=== PATIENT | female | born 2000 | race African-American/Black ===

== ENCOUNTER 2020-04-05 16:10 | Emergency (ER) | payer OTHER, SELFPAY ==
[2020-04-05 16:27] VITALS: BP 120/73; PULSE 83; RESP 16; TEMP 37.4; O2SAT 100
--- NOTE | 2020-04-05 16:31 | ED.EYEPROB ---
HPI - Eye Problem General Chief complaint: Eye Problems Stated complaint: eye problems Time Seen by Provider: 04/05/20 16:31 Source: patient Mode of arrival: ambulatory Limitations: no limitations History of Present Illness HPI Narrative: Clari Casas is a 20 yo female with no PMH who comes to express care with a large stye in her left eye. She states started on yesterday but it was very small but when she woke up the spreading her whole eyelid is very swollen. States the pain is 6 out of 10 Related Data Allergies Allergy/AdvReac Type Severity Reaction Status Date / Time No Known Allergies Allergy Verified 04/05/20 16:15 Review of Systems Review of Systems: Narrative: CONSTITUTIONAL: Denies fever, chills, sweats. EYES: Denies visual changes, has swelling of left upper eyelid with redness, discharge. ENT: Denies rhinorrhea, congestion, sore throat, otalgia. CARDIOVASCULAR: Denies chest pain, palpitations, edema. RESPIRATORY: Denies dyspnea, wheezing, cough GASTROINTESTINAL: Denies abdominal pain, nausea, vomiting, diarrhea. GENITOURINARY: Denies dysuria, hematuria, abnormal discharge SKIN: Denies rash or itching. NEUROLOGIC: Denies numbness, or focal weakness. PSYCHIATRIC: Denies anxiety or depression. FORMERLY [facility], [facility] Family History Family History Other No active medical problems Social History Social History Smoking status: Never smoker Alcohol intake: current Comments At time of signature, I agree with nursing past medical, surgical, social and family history. There is no relevant family history pertinent to the presenting complaint. Exam Narrative: Exam Narrative: GENERAL: This is a well-nourished, well-developed patient, in mild distress. HEAD: normocephalic, atraumatic. EYES: Vision is grossly intact. Left eye upper eyelid swollen and red, sclera clear EARS: External ears normal, auditory canals clear and without drainage, TMs normal without perforation. Hearing grossly intact. NOSE: External nose normal without nasal discharge, nares without redness, no rhinorrhea. THROAT: Mucous membranes moist, NECK: Neck supple, CARDIOVASCULAR: Regular rate and rhythm without murmurs, gallops, or rubs. RESPIRATORY: Clear to auscultation. Breath sounds equal bilaterally. No wheezes, rales, or rhonchi. GASTROINTESTINAL: Abdomen soft, non-tender, SKIN: warm, intact with no suspicious lesions or rash, good texture and turgor. NEURO: awake, alert, and oriented to person, place and time. There were no obvious focal neurologic abnormalities. Steady gait EXTREMITIES: Normal range of motion. BACK: Nontender without deformity Course Course Emergency Course: Started on Medrol Dosepak and antibiotic ointment for eyelid, discussed draining of stye and use of warm compresses and gentle massaging of eyelid Vital Signs Vital signs: Vital Signs Temperature 99.3 F 04/05/20 16:27 Pulse Rate 83 04/05/20 16:27 Respiratory Rate 16 04/05/20 16:27 Blood Pressure 120/73 04/05/20 16:27 Pulse Oximetry 100 04/05/20 16:27 Temperature 99.3 F 04/05/20 16:27 Pulse Rate 83 04/05/20 16:27 Respiratory Rate 16 04/05/20 16:27 Blood Pressure 120/73 04/05/20 16:27 Pulse Oximetry 100 04/05/20 16:27 MDM - Eye Problem Differential Diagnosis Differential diagnosis: Likely conjunctivitis and other (Blepharitis versus stye) Discharge Plan Discharge Clinical Impression: Hordeolum externum left upper eyelid Patient Disposition: Home, Self-Care Condition: Stable Instructions: Antibiotic Jessica Eduardo (ED) Additional Instructions: Use warm compresses to left eye, gently massage the eyelid, antibiotics ointment to left eyelid Prescriptions: New hhyrzmip-esmvxynapu-jagvqxdnc 3.5-400-10,000 hi-xqoi-ohuh/g ointment 1 applic EACH EYE TID Qty: 3.5 RF: 0 methylprednisolone [Medrol (Alexandro)] 4
== END 2020-04-05 16:56 | disposition home or self-care (01) ==
PROVIDERS: Emergency Provider Nurse Practitioner
DX: H00.014 Hordeolum externum left upper eyelid (principal)
CPT/HCPCS: 99203; G0463

== ENCOUNTER 2021-01-20 19:29 | Observation (INO) | payer OTHER, SELFPAY ==
--- NOTE | ~2021-01-20 | US_ITS ---
EXAMINATION: US OB <= 14 weeks fetus DATE: 01/21/2021 08:32 INDICATION: First trimester dating TECHNIQUE: Real-time pelvic transabdominal and transvaginal ultrasound was performed. COMPARISON: None. FINDINGS: The uterus measures 8.7 x 6.9 x 4.6 cm. There is an intrauterine gestational sac. A yolk s ac is identified. heart motion is identified measuring 157 beats per minute (bpm) by M-mode Dop pler. The crown rump length measures 1.4 cm , which correlates with an estimated gestational ag e of 7 weeks and 5 day(s) (+/-) 5 day(s). The right ovary measures 2.3 x 1.4 x 1.1 cm. The left ovary measures 2.4 x 2.2 x 1.8 cm. There is nor mal vascular flow in the ovaries. There is no free fluid in the pelvis. IMPRESSION: 1. Live intrauterine with an estimated gestational age of 7 weeks and 5 day(s) (+/-) 5 day( s) and an estimated delivery date of 09/04/2021. Reviewed, dictated and finalized at location A. IMPRESSION: 1. Live intrauterine with an estimated gestational age of 7 weeks and 5 day(s) (+/-) 5 day(s) and an estimated delivery date of 09/04/2021.
[2021-01-20 19:33] VITALS: BP 127/83; PULSE 71; RESP 18; TEMP 36.4; O2SAT 100
[2021-01-20 19:53] LABS: Basophils Percent Auto 0.2 % (0.2-1.2); Eosinophils Percent Auto 0.6 % (0-4.4); Hematocrit 41.7 % (37.0-47.0); Immature Granulocyte Absolute 0.02 K/mm3 (0.00-0.031); Immature Granulocyte Percent A 0.4 % (0-0.5); Lymphocytes Absolute Auto 1.61 K/mm3 (0.9-3.2); Lymphocytes Percent Auto 30.8 % (18.3-44.2); Mean Corpuscular HGB Conc 33.6 g/dl (32-36); Mean Corpuscular Hemoglobin 29.7 pg (26-34); Mean Corpuscular Volume 88.5 fl (80-100); Monocytes Absolute Auto 0.6 K/mm3 (0.1-0.6); Monocytes Percent Auto 10.5 % (2.6-8.5); Neutrophils Percent Auto 57.5 % (45.5-73.1); Platelet Count Result 265 k/mm3 (150-375); Red Blood Count 4.71 M/mm3 (4.2-5.4); White Blood Count 5.2 K/mm3 (4.5-10.0)
[2021-01-20 20:02] LABS: Alanine Aminotransferase 17 U/L (4-35); Albumin Level 4.8 g/dL (3.5-5.1); Alkaline Phosphatase 70 U/L (38-126); Anion Gap 11 mmol/L (8-16); Aspartate Amino Transferase 31 U/L (14-36); Bilirubin,Total 0.5 mg/dL (0.2-1.3); Blood Urea Nitrogen 11 mg/dL (7-17); Carbon Dioxide 25 mmol/L (22-30); Chloride 102 mmol/L (98-107); Estimated CRCL calculation 113 ml/min; Estimated Glomerular Filt Rate > 60; Glucose 95 mg/dL (65-105); Lipase 68 U/L (23-300); Potassium 3.3 mmol/L (3.4-5.0); Sodium 138 mmol/L (137-145)
--- NOTE | 2021-01-20 20:14 | ED.NAVMDI ---
HPI - Nausea/Vomiting/Diarrhea General Chief complaint: Nausea/Vomiting/Diarrhea Stated complaint: -N/V- 7 WEEKS Time Seen by Provider: 01/20/21 20:07 Source: RN notes reviewed History of Present Illness HPI Narrative: Patient presents to emergency department from home for nausea vomiting. Patient is G2, P1 approximately 7 weeks states that she has been having nausea vomiting for the past 1 week. She is followed by Dr. Christiansen today and was as prescribed diclegisd and Reglan which she has been taking with minimal relief. Patient denies having any fevers or chills, abdominal pain, vaginal bleeding diarrhea or any other symptoms she states she had problems with nausea vomiting with her first Related Data Allergies Allergy/AdvReac Type Severity Reaction Status Date / Time No Known Allergies Allergy Verified 01/20/21 20:16 Review of Systems Review of Systems: Narrative: Gen.: Denies fevers or chills ENT: Denies congestion Respiratory: Denies shortness of breath or cough CV: Denies chest pain or palpitations GI: Denies abdominal pain or diarrhea. Reports nausea and vomiting denies burning, urgency, frequency or hematuria Musculoskeletal: Denies back pain or muscle pain Neuro: Denies numbness, tingling, weakness or focal weakness Skin: Denies rash Except as documented, all other systems reviewed and negative [facility] Past Medical History Medical History (Updated 01/20/21 @ 22:25 by Gustavo Blanchard DO) No active medical problems Family History Family History Other No active medical problems Social History Social History Smoking status: Never smoker Alcohol intake: current Exam Narrative: Exam Narrative: APPEARANCE: No acute distress, nontoxic, resting in bed EYES: EOMI HEENT: Normocephalic, atraumatic, RESPIRATORY: No respiratory distress Clear to auscultation bilaterally with no rhonchi wheezing or rales. CARDIOVASCULAR: Regular rate and rhythm without murmurs rubs or gallops. ABDOMINAL: Soft, nontender, nondistended, no rebound or guarding MUSCULOSKELETAl: Moves all extremities. No clubbing, cyanosis or edema. NEURO: Awake and alert. Following commands, speech normal, no focal deficits SKIN:: Warm, dry. No rashes lesions or abrasions PSYCHIATRIC: Normal affect/mood, Course Course Emergency Course: Patient continues to have nausea unable to tolerate p.o. challenge following Phenergan and Zofran Discussed with Dr. Christiansen presentation work-up agrees with admission at this time to his service agrees with plan for a.m. ultrasound patient has no abdominal pain Discussed with patient and family results of workup and diagnosis. Discussed need for admission. Patient and family understand and agree to current treatment plan Vital Signs Vital signs: Vital Signs Temperature 97.5 F L 01/20/21 19:33 Pulse Rate 71 01/20/21 19:33 Respiratory Rate 18 01/20/21 19:33 Blood Pressure 127/83 01/20/21 19:33 Pulse Oximetry 100 01/20/21 19:33 Temperature 97.5 F L 01/20/21 19:33 Pulse Rate 71 01/20/21 22:23 Respiratory Rate 18 01/20/21 22:23 Blood Pressure 135/81 01/20/21 22:23 Pulse Oximetry 100 01/20/21 22:23 MDM - Nausea/Vomiting/Diarrhea Lab Data Result diagrams: 01/20/21 19:44 01/20/21 19:44 Labs: Lab Results 01/20/21 01/20/21 01/20/21 Range/Units 19:44 19:44 19:44 WBC 5.2 (4.5-10.0) K/mm3 RBC 4.71 (4.2-5.4) M/mm3 Hgb 14.0 (12.0-15.0) g/dL Hct 41.7 (37.0-47.0) % MCV 88.5 (80-100) fl MCH 29.7 (26-34) pg MCHC 33.6 (32-36) g/dl RDW 12.0 (11.5-14.5) % Plt Count 265 (150-375) k/mm3 MPV 11.0 H (7.4-10.4) fl Immature Gran % (Auto) 0.4 (0-0.5) % Neut % (Auto) 57.5 (45.5-73.1) % Lymph % (Auto) 30.8 (18.3-44.2) % [place] % (Auto) 10.5 H (2.6-8.5) %
[2021-01-20 20:31] LABS: Add Urine Microscopic? YES; Appearance Urine Cloudy (Clear); Bilirubin Urine Negative (Negative); Blood Urine Negative (Negative); Color Urine Amber (Yellow); Glucose Urine UA Negative (Negative); Ketones Urine 1+ mg/dL (Negative); Leukocyte Esterase Ur 1+ LEU/UL (Negative); Mucus Urine Heavy /lpf; Nitrate Urine Negative (Negative); Protein Urine 2+ mg/dL (Negative); RBC Urine 0-2 /hpf (0-2); Squamous Epithelial Cell Urine Many /hpf (Few)
[2021-01-20 20:33] LABS: Specific Grav Ur 1.036 (1.001-1.035)
[2021-01-20] MEDS: PROMETHAZINE HCL 25 MG/ML AMPUL 12.5 MG IV PUSH (20:36)
[2021-01-20] MEDS: FAMOTIDINE 20 MG/2 ML VIAL IV PUSH (20:37)
[2021-01-20] MEDS: SODIUM CHLORIDE 0.9% IV 1,000 ML 999 ML IV CONT ×2 (20:37→20:44)
[2021-01-20 21:04] VITALS: BP 108/66; PULSE 74
[2021-01-20 21:06] VITALS: BP 121/72; PULSE 75
[2021-01-20 21:09] VITALS: BP 133/76; PULSE 73
[2021-01-20] MEDS: ONDANSETRON INJ 4 MG/2 ML VIAL IV PUSH (21:42)
[2021-01-20 22:23] VITALS: BP 135/81; PULSE 71; RESP 18; O2SAT 100
--- NOTE | 2021-01-20 22:39 | OBADM ---
This patient, Clari Casas, admitted to the OB room OB Post 113 for observation. Patient/family oriented to hospital policies and general routines including ID bracelet, bed and alarms, visiting hours, pain management, procedures, bathroom and other care routines, personal items, smoking policy, room service/diet, and visiting hours. Patient/Family are encouraged to report perceived risks to care and to ask questions if they do not understand what they are told or what they should do.
[2021-01-20 22:47] VITALS: BP 132/76; PULSE 69; PULSE 70; RESP 16; TEMP 36.8; O2SAT 99
[2021-01-20 22:59] VITALS: BMI 27.3
[2021-01-20] MEDS: DEXTROSE 5%/0.45% SOD CHL 1,000 ML 125 ML IV CONT (23:09)
--- NOTE | 2021-01-20 23:51 | PC.NURSE ---
pt asking for crackers. RN explained to pt that she has a clear liquid order currently. Pt denies broth and willing to trying a popsicle.
[2021-01-21 04:51] VITALS: BP 119/69; PULSE 67; PULSE 71; RESP 16; TEMP 36.7; O2SAT 100
[2021-01-21] MEDS: DEXTROSE 5%/0.45% SOD CHL 1,000 ML 125 ML IV CONT ×2 (07:29→16:26)
[2021-01-21] MEDS: ONDANSETRON INJ 4 MG/2 ML VIAL IV PUSH ×3 (07:55→20:36)
--- NOTE | 2021-01-21 07:56 | PM.IMHP ---
H&P: HPI History of Present Illness Date/Time: 01/21/21 07:56 21yo @ 7w6d by LMP presented to ED with intractable nausea and vomiting. She states she has not really had anything to eat for about 1 week. Was taking anti-nausea medication at home but it was not working. She was given IV fluids and anti-emetics in the ED but symptoms were minimally improved. Was admitted overnight for observation and continued medical management. Chief Complaint: nausea and vomiting Review of Systems Constitutional: Constitutional: Reports no additional constitutional complaints Cardiovascular: Cardiovascular: Reports no additional cardiovascular complaints Respiratory: Respiratory: Reports no additional respiratory complaints Gastrointestinal: Gastrointestinal: Denies abdominal pain, Reports heartburn, Reports nausea and Reports vomiting Genitourinary: Genitourinary: Reports no additional female genitourinary complaints Musculoskeletal: Musculoskeletal: Reports no additional musculoskeletal complaints Integumentary/Breasts: Skin/Breast: Reports system reviewed and no additional complaints, except as docu Neurologic: Reports system reviewed and no additional complaints, except as documented Psychiatric: Psychiatric: Reports no additional psychiatric complaints Endocrine: Endocrine: Reports no additional endocrine complaints Hematologic/Lymphatic: Hematologic/Lymphatic: Reports no additional hematologic/lymphatic complaints [facility] Past Medical History Medical History No active medical problems Family History Family History Other No active medical problems Social History Social History Smoking status: Never smoker Alcohol intake: current Meds Home Medications and Allergies Home Medications Medication Instructions Recorded Confirmed Type metoclopramide HCl 1 mg PO PRN 01/20/21 01/20/21 History Allergies Allergy/AdvReac Type Severity Reaction Status Date / Time No Known Allergies Allergy Verified 01/20/21 20:16 Vital Signs Vital Signs - 24 hr 01/20/21 19:33 01/20/21 21:04 01/20/21 21:06 Temperature 36.4 C L Pulse Rate 71 74 75 Respiratory Rate 18 Blood Pressure 127/83 108/66 121/72 Pulse Oximetry 100 01/20/21 21:09 01/20/21 22:23 01/20/21 22:47 Temperature 36.8 C Pulse Rate 73 71 70 Respiratory Rate 18 16 Blood Pressure 133/76 135/81 132/76 Pulse Oximetry 100 99 01/21/21 04:51 Temperature 36.7 C Pulse Rate 71 Respiratory Rate 16 Blood Pressure 119/69 Pulse Oximetry 100 Exam Const: General: cooperative, healthy appearing, comfortable, well developed, alert and awake; No no acute distress Resp: Effort & Inspection: normal respiratory effort, able to speak in complete sentences, normal respiratory pattern, audible wheezes, no cough, respiratory effort not decreased and not labored Cardio: Rate: regular rate GI: Inspection: normal to inspection GI Palp: No abdominal tenderness, Yes Soft to palpation, No Firmness to palpation present (GI), No Tenderness to palpation present (GI), No Guarding due to palpation present (GI) and No Rigid due to palpation Neuro: General: oriented to person, oriented to place and oriented to time Psych: Appearance: grossly normal Mental Status: mental status grossly normal Speech and movement: Normal speech and movement present Affect: normal affect Attitude: cooperative Thought process: Normal thought process present Thought content: Yes Normal thought content present Insight: Good insight present (Psych) Judgement: Good judgement present (Psych) H&P: Results Labs Labs: Short CBC 01/20/21 01/20/21 01/20/21 Range/Units 19:44 19:44 19:44 WBC 5.2 (4.5-10.0) K/mm3 RBC 4.71 (4.2-5.4) M/mm3 Hgb 14.0 (12.0-15.0) g/dL Hct 41.7 (37.0-47.0) % MCV 88.5 (80-1
[2021-01-21] MEDS: FAMOTIDINE 20 MG/2 ML VIAL IV PUSH ×2 (08:10→21:29)
[2021-01-21 10:54] VITALS: BP 125/73; PULSE 69; TEMP 36.6
--- NOTE | 2021-01-21 20:30 | PC.NURSE ---
pt ate a few items off dinner tray and became nauseated afterwards. nausea has continued and is still present. see mar for medication interventions. pt has not had any vomiting this evening since change of shift at 1800.
[2021-01-22] MEDS: DEXTROSE 5%/0.45% SOD CHL 1,000 ML 125 ML IV CONT (00:32)
--- NOTE | 2021-01-22 02:30 | PC.NURSE ---
pt sleeping. pt states nausea is subsided at this time
[2021-01-22] MEDS: ONDANSETRON INJ 4 MG/2 ML VIAL IV PUSH ×2 (02:45→08:44)
[2021-01-22] MEDS: FAMOTIDINE 20 MG/2 ML VIAL IV PUSH (08:44)
--- NOTE | 2021-01-22 09:44 | PC.NURSE ---
0940--Reported pt status to Dr. Christiansen. Plan of care discussed and DC orders given.
[2021-01-22 10:11] VITALS: BP 125/66; PULSE 79
--- NOTE | 2021-01-22 10:51 | PC.NURSE ---
0930--Pt reports no nausea or vomiting after eating toast. Will continue to monitor. Discharge plan discussed,
--- NOTE | 2021-01-22 12:11 | PC.NURSE ---
1210--Removed IV from R AC. WNL.
--- NOTE | 2021-01-24 18:49 | PM.DS ---
DS: Admitting Diagnosis Admitting Diagnosis Admitting Diagnosis: Nausea and vomiting of DS: Discharge Diagnosis Discharge Diagnosis (1) Hyperemesis gravidarum: Code(s): O21.0 - Mild hyperemesis gravidarum Status: Acute DS: Summary Hospital Course Hospital Course: Patient was admitted for intractable nausea and vomiting. Patient received IV fluids and IV antiemetics. Over the course of her stay, she started to improve. Was able to tolerate fluids and popsicles. And eventually food. Stable for discharge home and outpatient management. Status at Discharge Functional status at discharge: independent ambulation Overall status at discharge: patient is progressing back to baseline Time Spent with Patient Time attestation: Total time spent providing and/or coordinating discharge services: Time spent: Less than 30 minutes Exam Const: General: cooperative, healthy appearing, comfortable, well developed, alert and awake; No no acute distress Orientation/consciousness: oriented to person, oriented to place and oriented to time Resp: Effort & Inspection: normal respiratory effort, able to speak in complete sentences, normal respiratory pattern, audible wheezes, no cough, respiratory effort not decreased and not labored Cardio: Rate: regular rate GI: Inspection: normal to inspection Neuro: General: oriented to person, oriented to place and oriented to time Psych: Appearance: grossly normal Mental Status: mental status grossly normal Speech and movement: Normal speech and movement present Affect: normal affect Attitude: cooperative Thought process: Normal thought process present Insight: Good insight present (Psych) Judgement: Good judgement present (Psych) Discharge Plan Discharge Attending physician on discharge: Pawel Christiansen Discharging Clinician: Pawel Christiansen Patient Disposition: Home, Self-Care Activity: as tolerated Diet: as tolerated Discharge Instructions: OB ANTEPARTUM DISCHARGE INSTRUCTIONS This information is given to help you properly care for yourself at home after your discharge from the hospital. Follow these instructions until your doctor tells you otherwise. DIET: Small Frequent Feedings [place] Advance As Tolerated Additional Diet Instructions: ACTIVITY: As Tolerated Additional Activity Instructions: RETURN TO LABOR AND DELIVERY IF YOU HAVE: Vaginal Bleeding Additional Reasons to Return to Labor and Delivery: Contractions may feel like abdominal pain, tightening, cramping, pressure, back ache, or thigh ache. . OTHER INSTRUCTIONS: FOLLOW-UP CARE: Keep Next Scheduled Appointment To see in/on Valuables released to patient or family? N/A Medications from home returned to patient? N/A I Acknowledge Receipt of and Understand the Above Instructions IF YOU HAVE ANY QUESTIONS REGARDING THESE INSTRUCTIONS, PLEASE CALL [phone]. IF PROBLEMS ARISE, CALL YOUR PROVIDER. IF EMERGENCY CARE IS NEEDED, [facility]S EMERG[facility]Y ROOM IS AVAILABLE 24 HOURS A DAY. Patient Instructions: Antibiotic Form Stand Alone Forms: General Discharge Information Follow-up/Referrals: Pawel Christiansen, [Physician] - Discharge Medications: New ondansetron 4 mg tablet,disintegrating 4 mg translingual Q6H PRN (Reason: nausea and vomiting) Qty: 30 RF: 1 Discontinued metoclopramide HCl 10 mg tablet 1 mg PO PRN RF: 0 Date of admission: 01/20/21 22:09 Primary Care Provider: PHYSICIAN,CONTINUOUS LOFT OPERATOR Admitting Provider: Pawel Christiansen Attending physician on admission: Pawel Christiansen Condition: Stable
== END 2021-01-22 12:13 | disposition home or self-care (01) ==
LOC: ANHED 22:07 → ANHOBPP 22:23
PROVIDERS: Family Medicine; Admitting Provider Obstetrics & Gynecology; Emergency Provider Emergency Medicine; Visit Provider Obstetrics & Gynecology
DX: O21.0 Mild hyperemesis gravidarum (principal); Z3A.01 Less than 8 weeks gestation of pregnancy
CPT/HCPCS: 36415; 76801; 80053; 81001; 81025; 83690; 84702; 85025; 87077; 87086; 87088; 96361; 96365; 96374; 96375; 96376; 99285; G0378; G0379; J0131; J2405; J2550; J7030

== ENCOUNTER 2021-01-25 08:52 | Observation (INO) | payer OTHER, SELFPAY ==
[2021-01-25 08:59] VITALS: BP 134/81; PULSE 73; RESP 14; TEMP 36.4; O2SAT 100
[2021-01-25 09:22] LABS: Basophils Percent Auto 0.2 % (0.2-1.2); Eosinophils Percent Auto 0.2 % (0-4.4); Hematocrit 41.9 % (37.0-47.0); Hemoglobin 14.2 g/dL (12.0-15.0); Immature Granulocyte Absolute 0.02 K/mm3 (0.00-0.031); Immature Granulocyte Percent A 0.5 % (0-0.5); Lymphocytes Absolute Auto 1.18 K/mm3 (0.9-3.2); Lymphocytes Percent Auto 27.2 % (18.3-44.2); Mean Corpuscular HGB Conc 33.9 g/dl (32-36); Mean Corpuscular Hemoglobin 29.2 pg (26-34); Mean Corpuscular Volume 86.2 fl (80-100); Mean Platelet Volume 11.4 fl (7.4-10.4); Monocytes Absolute Auto 0.4 K/mm3 (0.1-0.6); Monocytes Percent Auto 8.3 % (2.6-8.5); Neutrophils Absolute Auto 2.8 K/mm3 (1.3-6.7); Neutrophils Percent Auto 63.6 % (45.5-73.1); Platelet Count Result 253 k/mm3 (150-375); Red Blood Count 4.86 M/mm3 (4.2-5.4); Red Cell Distribution Width 12.1 % (11.5-14.5); White Blood Count 4.3 K/mm3 (4.5-10.0)
[2021-01-25 09:30] LABS: Add Urine Microscopic? YES; Appearance Urine Cloudy (Clear); Bacteria Urine Trace /hpf; Bilirubin Urine Negative (Negative); Blood Urine Negative (Negative); Color Urine Yellow (Yellow); Glucose Urine UA Negative (Negative); Ketones Urine 2+ mg/dL (Negative); Leukocyte Esterase Ur 1+ LEU/UL (Negative); Mucus Urine Few /lpf; Nitrate Urine Negative (Negative); Protein Urine 2+ mg/dL (Negative); RBC Urine 0-2 /hpf (0-2); Squamous Epithelial Cell Urine Many /hpf (Few)
[2021-01-25 09:31] LABS: Alanine Aminotransferase 15 U/L (4-35); Albumin Level 4.9 g/dL (3.5-5.1); Alkaline Phosphatase 73 U/L (38-126); Anion Gap 16 mmol/L (8-16); Aspartate Amino Transferase 27 U/L (14-36); Bilirubin,Total 0.5 mg/dL (0.2-1.3); Blood Urea Nitrogen 9 mg/dL (7-17); Calcium 10.3 mg/dL (8.4-10.2); Carbon Dioxide 21 mmol/L (22-30); Chloride 102 mmol/L (98-107); Estimated CRCL calculation 120 ml/min; Estimated Glomerular Filt Rate > 60; Glucose 87 mg/dL (65-105); Lipase 120 U/L (23-300); Potassium 3.1 mmol/L (3.4-5.0); Sodium 139 mmol/L (137-145)
[2021-01-25] MEDS: LACTATED RINGERS 1,000 ML 150 ML IV CONT (10:14)
[2021-01-25] MEDS: POTASSIUM CHLORIDE 20 MEQ TABLET 40 MEQ PO (10:35)
[2021-01-25] MEDS: PROMETHAZINE HCL 25 MG SUPP.RECT RECTAL (11:07)
[2021-01-25 11:20] VITALS: BP 114/69; PULSE 71; RESP 16; O2SAT 100
--- NOTE | 2021-01-25 12:44 | ED.NAVMDI ---
HPI - Nausea/Vomiting/Diarrhea General Chief complaint: Nausea/Vomiting/Diarrhea Stated complaint: Vomiting/8 weeks Time Seen by Provider: 01/25/21 09:32 Source: patient Mode of arrival: ambulatory Limitations: no limitations History of Present Illness HPI Narrative: 21-year-old female Presents because of nausea and vomiting She was discharged 3 days ago after a 2-day hospitalization for the same thing She is 8-1/2 weeks and has been attempting Zofran for hyperemesis at home but reports it only worked for about a day after discharge She had severe nausea and vomiting with her other 2 pregnancies as well Related Data Allergies Allergy/AdvReac Type Severity Reaction Status Date / Time metoclopramide [From Reglan] AdvReac Vomiting Verified 01/25/21 10:18 [facility] Past Medical History Medical History No active medical problems Family History Family History Other No active medical problems Social History Social History Smoking status: Never smoker Alcohol intake: current Course Vital Signs Vital signs: Vital Signs Temperature 36.4 C L 01/25/21 08:59 Pulse Rate 73 01/25/21 08:59 Respiratory Rate 14 01/25/21 08:59 Blood Pressure 134/81 01/25/21 08:59 Pulse Oximetry 100 01/25/21 08:59 Temperature 36.4 C L 01/25/21 08:59 Pulse Rate 71 01/25/21 11:20 Respiratory Rate 16 01/25/21 11:20 Blood Pressure 114/69 01/25/21 11:20 Pulse Oximetry 100 01/25/21 11:20 MDM - Nausea/Vomiting/Diarrhea Lab Data Result diagrams: 01/25/21 09:12 01/25/21 09:12 Labs: Lab Results 01/25/21 01/25/21 01/25/21 Range/Units 09:12 09:12 09:19 WBC 4.3 L (4.5-10.0) K/mm3 RBC 4.86 (4.2-5.4) M/mm3 Hgb 14.2 (12.0-15.0) g/dL Hct 41.9 (37.0-47.0) % MCV 86.2 (80-100) fl MCH 29.2 (26-34) pg MCHC 33.9 (32-36) g/dl RDW 12.1 (11.5-14.5) % Plt Count 253 (150-375) k/mm3 MPV 11.4 H (7.4-10.4) fl Immature Gran % (Auto) 0.5 (0-0.5) % Neut % (Auto) 63.6 (45.5-73.1) % Lymph % (Auto) 27.2 (18.3-44.2) % [place] % (Auto) 8.3 (2.6-8.5) % Eos % (Auto) 0.2 (0-4.4) % Baso % (Auto) 0.2 (0.2-1.2) % Lymph # (Auto) 1.18 (0.9-3.2) K/mm3 [place] # (Auto) 0.4 (0.1-0.6) K/mm3 Eos # (Auto) 0.0 (0-0.3) K/mm3 Baso # (Auto) 0.0 (0.0-0.1) K/mm3 Abs Immat Gran (auto) 0.02 (0.00-0.031) K/mm3 Absolute Neuts (auto) 2.8 (1.3-6.7) K/mm3 Absolute Nucleated RBC 0.0 (0.0-0.012) K/mm3 Nucleated RBC % 0.0 (0.0-0.2) % Sodium 139 (137-145) mmol/L Potassium 3.1 L (3.4-5.0) mmol/L Chloride 102 (98-107) mmol/L Carbon Dioxide 21 L (22-30) mmol/L Anion Gap 16 (8-16) mmol/L BUN 9 (7-17) mg/dL Creatinine 0.70 (0.7-1.0) mg/dL Estim Creat Clear Calc 120 ml/min Estimated GFR > 60 (59 - ) Glucose 87 (65-105) mg/dL Calcium 10.3 H (8.4-10.2) mg/dL Total Bilirubin 0.5 (0.2-1.3) mg/dL AST 27 (14-36) U/L ALT 15 (4-35) U/L Alkaline Phosphatase 73 (38-126) U/L Total Protein 10.0 H (6.3-8.2) g/dL Albumin 4.9 (3.5-5.1) g/dL Lipase 120 (23-300) U/L Urine Color Yellow (Yellow) Urine Appearance Cloudy H (Clear) Urine pH 6.0 (5.0-9.0) Ur Specific [place] 1.030 (1.001-1.035) Urine Protein 2+ H (Negative) mg/dL Urine Glucose (UA) Negative (Negative) mg/dL Urine Ketones 2+ H (Negative) mg/dL Ur Blood (Man) Negative (Negative) Urine Nitrate Negative (Negative) Urine Bilirubin Negative (Negative) Urine Urobilinogen 2.0 H (<2.0) mg/dL Leukocyte Esterase Rfl 1+ H (Negative) HILDA/UL Urine RBC 0-2 (0-2) /hpf Urine WBC 10-15 H /hpf Ur Squamous Epith Cells Many H (Few) /hpf Urine Bacteria Trac
--- NOTE | 2021-01-25 14:07 | PM.IMHP ---
H&P: HPI History of Present Illness Date/Time: 01/25/21 13:38 Clari is a 21yo @ 8.3wks (SUNITHA 09[birth year]) who re-presented to the ER w/ severe N/V, inability to keep anything down (even water) for the last 48 hours. She was discharged 3 days ago after a 2-day hospitalization for the same thing. She has been attempting Zofran for hyperemesis at home but reports it only worked for about a day after discharge and then made her vomit. She had severe nausea and vomiting with her other 2 pregnancies as well. Her potassium was found to be low at 3.1 with 2+ ketones on UA. Urine culture from her last admission is growing GBS. Chief Complaint: nausea/vomiting Review of Systems Constitutional: Constitutional: Denies chills and Denies headache(s) Eyes: Eyes: Denies change in vision Cardiovascular: Cardiovascular: Denies chest pain and Denies rapid heart rate Respiratory: Respiratory: Denies cough and Denies dyspnea Gastrointestinal: Gastrointestinal: Denies abdominal pain, Reports heartburn, Reports nausea, Reports vomiting and Denies hematemesis Comments: passing gas; last BM 01/23/21 Genitourinary: Genitourinary: Denies abnormal vaginal bleeding [facility] Past Medical History Medical History No active medical problems Family History Family History Other No active medical problems Social History Social History Smoking status: Never smoker Alcohol intake: current Meds Home Medications and Allergies Home Medications Medication Instructions Recorded Confirmed Type ondansetron 4 mg TRANSLINGUAL Q6H PRN #30 01/22/21 Rx tablet Allergies Allergy/AdvReac Type Severity Reaction Status Date / Time metoclopramide [From Reglan] AdvReac Vomiting Verified 01/25/21 10:18 Vital Signs Vital Signs - 24 hr 01/25/21 08:59 01/25/21 11:20 Temperature 36.4 C L Pulse Rate 73 71 Respiratory Rate 14 16 Blood Pressure 134/81 114/69 Pulse Oximetry 100 100 Exam Const: General: cooperative, comfortable and ill appearing Resp: Effort & Inspection: normal respiratory effort and able to speak in complete sentences Auscultation: clear to auscultation bilaterally Cardio: Rate: regular rate GI: Inspection: non-distended GI Palp: Yes Soft to palpation Auscultation: normal bowel sounds Skin: General skin exam: normal color Neuro: General: patient oriented x3 Psych: Appearance: grossly normal Affect: normal affect Attitude: cooperative H&P: Results Labs Labs: Short CBC 01/25/21 Range/Units 09:12 WBC 4.3 L (4.5-10.0) K/mm3 Hgb 14.2 (12.0-15.0) g/dL Hct 41.9 (37.0-47.0) % Plt Count 253 (150-375) k/mm3 BMP 01/25/21 09:12 Sodium 139 Potassium 3.1 L Chloride 102 Carbon Dioxide 21 L BUN 9 Creatinine 0.70 Glucose 87 Calcium 10.3 H Liver Function 01/25/21 Range/Units 09:12 Total Bilirubin 0.5 (0.2-1.3) mg/dL AST 27 (14-36) U/L ALT 15 (4-35) U/L Alkaline Phosphatase 73 (38-126) U/L Albumin 4.9 (3.5-5.1) g/dL Urine 01/25/21 Range/Units 09:19 Urine Color Yellow (Yellow) Urine Appearance Cloudy H (Clear) Urine pH 6.0 (5.0-9.0) Ur Specific [place] 1.030 (1.001-1.035) Urine Protein 2+ H (Negative) mg/dL Urine Glucose (UA) Negative (Negative) mg/dL Assessment and Plan Assessment and plan (1) Hyperemesis gravidarum: Code(s): O21.0 - Mild hyperemesis gravidarum Status: Acute Assessment and Plan: - s/p D5 + 1/2 NS + 40mEq of KCl - will continue D5 + NS @ 150cc/hr - will schedule pepcid 20mg q24hr - will schedule B6 TID + unisom BID - phenergan suppository PRN - Zofran PRN - Once pt is feeling better, will attempt CLD later this evening, possible d/c home tomorrow - Had a lengthy discussion regarding small, bland, frequent
[2021-01-25] MEDS: FAMOTIDINE 20 MG/2 ML VIAL IV PUSH (15:36)
[2021-01-25 15:39] VITALS: BMI 24.9
[2021-01-25 15:51] VITALS: BP 131/70; PULSE 71
[2021-01-25 15:52] VITALS: TEMP 37.1
[2021-01-25] MEDS: ONDANSETRON INJ 4 MG/2 ML VIAL IV PUSH (17:20)
[2021-01-25] MEDS: PYRIDOXINE HCL 25 MG TABLET PO (17:21)
[2021-01-25] MEDS: diphenhydrAMINE HCl CAP 25 MG CAPSULE PO (17:21)
[2021-01-25] MEDS: DEXTROSE 5%/0.9% SOD CHL 1,000 ML 150 ML IV CONT (17:26)
[2021-01-25] MEDS: METOCLOPRAMIDE HCL INJ 10 MG/2 ML VIAL IV PUSH (17:58)
[2021-01-26] MEDS: DEXTROSE 5%/0.9% SOD CHL 1,000 ML 150 ML IV CONT ×3 (00:05→13:10)
[2021-01-26 00:07] VITALS: TEMP 36.8
[2021-01-26 00:08] VITALS: BP 118/63; PULSE 72
[2021-01-26] MEDS: METOCLOPRAMIDE HCL INJ 10 MG/2 ML VIAL IV PUSH ×2 (01:19→06:50)
[2021-01-26 06:53] VITALS: BP 115/63; PULSE 67; RESP 16; TEMP 36.8
[2021-01-26] MEDS: PYRIDOXINE HCL 25 MG TABLET PO ×2 (09:19→14:45)
[2021-01-26] MEDS: diphenhydrAMINE HCl CAP 25 MG CAPSULE PO (09:19)
--- NOTE | 2021-01-26 10:48 | P.PNOB_ITS ---
OB - PN: Subj Subjective Date/time seen: 01/26/21 10:48 HD#2 Clari reports feeling much better today; no nausea or vomiting. She has tolerated ice chips and water; wants to order breakfast. No cramping/bleeding. Voiding w/o issue. Had a BM. No CP, SOB, [place], vision changes, fever, chills, dysuria. Would like to go home today. OB - PN: Obj Data Labs CBC & Chem 7: 01/25/21 09:12 01/25/21 09:12 OB - PN A/P Assessment and Plan (1) Hyperemesis gravidarum: Code(s): O21.0 - Mild hyperemesis gravidarum Status: Acute Assessment and Plan: - all meds switched to PO - advance diet as tolerated - rxs sent to pharmacy; pepcid, reglan, zofran and diclegis-- discussed dosing; pt to call the call line if she has any issues with the prescriptions - repeat BMP pending - plan for discharge home this afternoon after abx and if regular diet tolerated - pt encouraged to eat small, bland, frequent meals and stay hydrated, even if mildly nauseous (2) GBS bacteriuria: Code(s): R82.71 - Bacteriuria Status: Acute Assessment and Plan: - will give one more dose of ceftriaxone Time Spent With Patient Time: Total time spent is greater than 50% in coordination of care (as do cumented) at patient's floor/unit and/or counseling patient: Review of Systems Review of Systems: All systems reviewed & are unremarkable except as noted in HPI and below (HPI) Exam Const: General: cooperative, healthy appearing, comfortable and no acute distress Resp: Effort & Inspection: normal respiratory effort and able to speak in complete sentences Auscultation: clear to auscultation bilaterally Cardio: Rate: regular rate GI: Inspection: non-distended GI Palp: No abdominal tenderness and Yes Soft to palpation Auscultation: normal bowel sounds Skin: General skin exam: normal color Neuro: General: patient oriented x3 Psych: Appearance: grossly normal Affect: normal affect Attitude: cooperative
[2021-01-26] MEDS: METOCLOPRAMIDE HCL 10 MG TABLET PO ×2 (12:38→19:05)
[2021-01-26] MEDS: ONDANSETRON HCL ODT 4 MG TABLET PO (13:43)
[2021-01-26] MEDS: FAMOTIDINE 20 MG TABLET PO (13:43)
[2021-01-26 13:46] VITALS: BP 128/85; PULSE 74; RESP 16; TEMP 36.8
== END 2021-01-26 19:30 | disposition home or self-care (01) ==
LOC: ANHED 09:32 → ANHOBPP 12:28
PROVIDERS: Admitting Provider Obstetrics & Gynecology; Emergency Provider Emergency Medicine; Visit Provider Obstetrics & Gynecology
DX: O21.0 Mild hyperemesis gravidarum (principal); R82.71 Bacteriuria; Z3A.08 8 weeks gestation of pregnancy
CPT/HCPCS: 36415; 80053; 81001; 81025; 83690; 85025; 87086; 87088; 96361; 96365; 96375; 96376; 99285; A9270; G0378; G0379; J0696; J2405; J2765; J3480; J7042; J7120

== ENCOUNTER 2021-08-17 07:28 | Observation (INO) | payer OTHER, SELFPAY ==
--- NOTE | 2021-08-17 07:28 | OBADM ---
This patient, Clari Casas, admitted to the OB room Labor/Delivery/Recovery 108 for observation. Patient/family oriented to hospital policies and general routines including ID bracelet, bed and alarms, visiting hours, pain management, procedures, bathroom and other care routines, personal items, smoking policy, room service/diet, and visiting hours. Patient/Family are encouraged to report perceived risks to care and to ask questions if they do not understand what they are told or what they should do.
[2021-08-17 08:00] VITALS: BMI 31.6
[2021-08-17] MEDS: ZOLPIDEM TARTRATE (*CRX) 5 MG TABLET PO (12:23)
--- NOTE | 2021-08-21 07:26 | PM.OBTRLD ---
OB - Triage/Final Diagnosis Visit Information Date of evaluation: 08/19/21 Reason for evaluation: threatened labor Comments/Additional reasons for admission: I have assessed the risk for this patient, Clari Casas, and determined that she would benefit from observation care.
== END 2021-08-17 12:30 | disposition home or self-care (01) ==
PROVIDERS: Admitting Provider Obstetrics & Gynecology; Visit Provider Obstetrics & Gynecology
DX: O47.1 False labor at or after 37 completed weeks of gestation (principal); Z3A.37 37 weeks gestation of pregnancy
CPT/HCPCS: A9270; G0378; G0379

== ENCOUNTER 2021-08-18 11:32 | Inpatient (IN) | payer OTHER, SELFPAY ==
[2021-08-18] VITALS (99 sets, daily range): BP systolic 104–146; BP diastolic 64–119; PULSE 38–116; RESP 18; TEMP 36.5–37.4; O2SAT 76–100; BMI 31.6
--- OUTSIDE RECORDS SUMMARY | 2021-08-18 11:40 | XMS_ITS ---
:2000 Author Care Team Providers Name Role Phone Jhoana Hood Primary Care Provider Unavailable Allergies None recorded. Medications Name Status Start Date Stop Date ? ? Diflucan 150 mg tablet Active ? Not avail able Take 1 tablet by oral route. Completed ? 07/29/2021 Problems Name Status Onset Date Source ? Active 03/15/2021 ? 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 Procedures Date Name Performed by ? 04/15/2021 US, Obstetric, 2Nd or 3Rd Trimester Mary townsend [facility] [place] [address] (Work Place) Results Lab Results Date Name Specimen Result Interpretation Description Value Range Status Address ? 08/05/2021 Streptococcus ABNORMAL Result see results ? Final [facility]: Group B, Report below [address], [address], Specimen [place] 06/17/2021 Hematocrit, Low Hct 36.5 % (base Final [facility]: Blood d on [address], legal [place] sex) 37.4- 48.3
--- OUTSIDE RECORDS SUMMARY | 2021-08-18 11:40 | XMS_ITS | Encounter Summary ---
:2000 Author Reason for Visit OB visit 26w3d Assessment and Plan 1. Routine care Discussion Note: None recorded.Patient educational handouts: No information available. Plan of Care Reminders Provider Appointments Ob Routine Jhoana Maria Luz 08/19/2021 MD Sana 2:45PM ? Ob Routine Jhoana Th erese 08/26/2021 MD Sana 2:45PM ? Induction Jhoana The rese 08/27/2021 MD Sana 6:00AM ? Ob Routine Jhoana Th erese 09/03/2021 MD Sana 3:30PM Lab None ? ? recorded. Referral None ? ? recorded. Procedures None ? ? recorded. Surgeries None ? ? recorded. Imaging None ? ? recorded. Medications Name Start Date ? ? Diflucan 150 mg tablet ? Take 1 tablet by oral route. Medications Administered None recorded. Vitals Height Weight BMI Blood Pressure 5 ft 6 in 187 lbs 30.2 kg/m2 126/82 mm[Hg] Results Lab Results None recorded. Allergies None recorded. Problems Name Status
--- OUTSIDE RECORDS SUMMARY | 2021-08-18 11:40 | XMS_ITS | Encounter Summary ---
:2000 Author Reason for Visit OB visit Assessment and Plan 1. Routine care Discussion [...] BMI Blood Pressure 5 ft 6 in 198 lbs 32 kg/m2 129/80 mm[Hg] Results Lab Results None recorded. Allergies None recorded. Problems Name Status Onset Date Source ?
--- OUTSIDE RECORDS SUMMARY | 2021-08-18 11:40 | XMS_ITS | Encounter Summary ---
:2000 Author Reason for Visit OB visit Assessment and Plan 1. Routine care 2. Candidiasis of vagina ? Diflucan 150 mg tablet 3. Group B Streptococcus carrier Discussion Note: None recorded.Patient educational handouts: No [...] BMI Blood Pressure 5 ft 6 in 197 lbs 31.8 kg/m2 129/84 mm[Hg] Results
--- OUTSIDE RECORDS SUMMARY | 2021-08-18 11:40 | XMS_ITS | Encounter Summary ---
[...] BMI Blood Pressure 5 ft 6 in 191 lbs 30.8 kg/m2 119/80 mm[Hg] Results Lab Results None recorded. Allergies None recorded. Problems Name Status Onset Date Source ?
--- OUTSIDE RECORDS SUMMARY | 2021-08-18 11:40 | XMS_ITS | Encounter Summary ---
:2000 Author Reason for Visit OB visit 30w6d Assessment and Plan 1. Routine care Discussion [...] BMI Blood Pressure 5 ft 6 in 195 lbs 31.5 kg/m2 103/64 mm[Hg] Results Lab Results None recorded. Allergies None recorded. Problems Name Status
[2021-08-18] MEDS: AMPICILLIN 2 GM/NS 100 ML 2 GM/100 ML BAG IVPB (11:55)
[2021-08-18 12:08] LABS: Basophils Percent Auto 0.1 % (0.2-1.2); Eosinophils Percent Auto 0.3 % (0-4.4); Hematocrit 38.9 % (37.0-47.0); Hemoglobin 12.9 g/dL (12.0-15.0); Immature Granulocyte Absolute 0.02 K/mm3 (0.00-0.031); Immature Granulocyte Percent A 0.3 % (0-0.5); Lymphocytes Absolute Auto 1.68 K/mm3 (0.9-3.2); Lymphocytes Percent Auto 24.2 % (18.3-44.2); Mean Corpuscular HGB Conc 33.2 g/dl (32-36); Mean Corpuscular Hemoglobin 28.3 pg (26-34); Mean Corpuscular Volume 85.3 fl (80-100); Mean Platelet Volume 10.6 fl (7.4-10.4); Monocytes Absolute Auto 0.4 K/mm3 (0.1-0.6); Monocytes Percent Auto 5.5 % (2.6-8.5); Neutrophils Absolute Auto 4.8 K/mm3 (1.3-6.7); Neutrophils Percent Auto 69.6 % (45.5-73.1); Platelet Count Result 308 k/mm3 (150-375); Red Blood Count 4.56 M/mm3 (4.2-5.4); White Blood Count 6.9 K/mm3 (4.5-10.0)
--- NOTE | 2021-08-18 12:08 | LDADM ---
This patient, Clari Casas, was admitted to Labor/Delivery/Recovery 105 on 08/18/21 at 11:32. Plans for labor, pain management and were discussed with patient. Patient/family oriented to hospital policies and general routines including ID bracelet, bed and alarms, visiting hours, pain management, procedures, bathroom and other care routines, personal items, smoking policy, room service/diet and guest tray routines, security routines, and visiting hours. Patient/Family are encouraged to report perceived risks to care and to ask questions if they do not understand what they are told or what they should do. See OBIX for further documentation.
--- NOTE | 2021-08-18 12:44 | WPDANESEPP ---
Anes - Eval Pre Procedure Procedure: labor pain management Date/Time: 08/18/21 12:44 Surgeon: Sana Preop Diagnosis: pain during labor Pre Op Diagnosis: contractions Patient Data Age: 21 Gender: F Height: 1.68 m Weight: 89 kg Last Vital Signs Pulse 78 08/18/21 12:43 BP 126/70 08/18/21 12:43 Pulse Ox 100 08/18/21 12:42 Allergies Allergy/AdvReac Type Severity Reaction Status Date / Time No Known Allergies Allergy Verified 08/05/21 13:45 Laboratory Tests 08/18/21 08/18/21 11:44 11:44 WBC 6.9 K/mm3 K/mm3 (4.5-10.0) RBC 4.56 M/mm3 M/mm3 (4.2-5.4) Hgb 12.9 g/dL g/dL (12.0-15.0) Hct 38.9 % % (37.0-47.0) MCV 85.3 fl fl (80-100) MCH 28.3 pg pg (26-34) MCHC 33.2 g/dl g/dl (32-36) RDW 15.0 % H % (11.5-14.5) Plt Count 308 k/mm3 k/mm3 (150-375) MPV 10.6 fl H fl (7.4-10.4) Immature Gran % (Auto) 0.3 % % (0-0.5) Neut % (Auto) 69.6 % % (45.5-73.1) Lymph % (Auto) 24.2 % % (18.3-44.2) [place] % (Auto) 5.5 % % (2.6-8.5) Eos % (Auto) 0.3 % % (0-4.4) Baso % (Auto) 0.1 % L % (0.2-1.2) Lymph # (Auto) 1.68 K/mm3 K/mm3 (0.9-3.2) [place] # (Auto) 0.4 K/mm3 K/mm3 (0.1-0.6) Eos # (Auto) 0.0 K/mm3 K/mm3 (0-0.3) Baso # (Auto) 0.0 K/mm3 K/mm3 (0.0-0.1) Abs Immat Gran (auto) 0.02 K/mm3 K/mm3 (0.00-0.031) Absolute Neuts (auto) 4.8 K/mm3 K/mm3 (1.3-6.7) Absolute Nucleated RBC 0.0 K/mm3 K/mm3 (0.0-0.012) Nucleated RBC % 0.0 % % (0.0-0.2) RPR Pending : gestational age (edc 09/03/21) Patient hx anesthesia problems: none Family hx anesthesia problems: none Results Review: All pre-operative results and documents have been reviewed as part of the pre-operative evaluation. [facility] Past Medical History Medical History No active medical problems Family History Family History Other No active medical problems Social History Social History Smoking status: Never smoker Alcohol intake: current Substance use: never Spiritual care concerns: No Exam Day of Procedure 08/18/21 12:44
[2021-08-18] MEDS: LACTATED RINGERS 1,000 ML 125 ML IV CONT (13:36)
[2021-08-18 15:16] LABS: Amphetamine Screen Urine Negative (Negative); Barbiturate Screen Urine Negative (Negative); Benzodiazepines Screen Urine Negative (Negative); Cannabinoid Screen Urine Positive (Negative); Cocaine Screen Urine Negative (Negative); Methadone Screen Urine Negative (Negative); Opiate Screen Urine Negative (Negative); Phencyclidine Screen Urine Negative (Negative)
[2021-08-18] MEDS: OXYTOCIN 30 UNITS/NS 500 ML 30 UNITS/500 ML BAG 999 UNITS IV CONT (16:05)
--- NOTE | 2021-08-18 16:14 | WPDOBADMIT ---
Obstetrics - Admit Note Admission Note: record reviewed. No pertinent additions to the history and/or any subsequent changes in the physical findings that are not consistent with the expected course of the were found. +GBS arrived in labor, AROM minimal amount of clear odorless fluid, SVE 10/+1 Additions to the history and/or subsequent changes in the physical findings follow. None.
--- NOTE | 2021-08-18 16:15 | PM.OBPRVD ---
OB - Delivery Note Procedure Delivery date: 08/18/21 Procedure: Vaginal delivery events: No Care Intrapartal events: None Induction method: none Delivery augmentation: rupture of membranes Delivery monitor: external FHT and external uterine Route of delivery: Episiotomy description: None Laceration Description: None Specimen: Yes Quantitative Blood Loss (ml): 50 Anesthesia type: Epidural Disposition: floor Baby Date of : 08/18/21 Time of : 16:00 Weeks of gestation at delivery: 37 Infant gender: Male Weight (pounds): 5 Weight (ounces): 12 presentation: vertex position: Left Occiput Anterior Placenta delivery description: Spontaneous cord vessel description: 3 Vessels, Clamped/Cut and Delayed Cord Clamping score one minute: 9 score five minutes: 9 Narrative: mother and baby skin to skin in stable condition, cord in between amnion layers placenta to pathology
[2021-08-18] MEDS: OXYTOCIN 30 UNITS/NS 500 ML 30 UNITS/500 ML BAG 125 UNITS IV CONT (16:41)
--- NOTE | 2021-08-18 19:22 | OBPPTRN ---
Patient transferred to post room #291 via wheelchair. Support person present. Oriented to unit, room, information board, rooming in, admission packet and security measures. Patient verbalizes understanding.
[2021-08-18] MEDS: IBUPROFEN 600 MG TABLET PO (23:39)
[2021-08-19] VITALS: BP 112/74; PULSE 60; RESP 18; TEMP 36.8
[2021-08-19 04:00] VITALS: BP 120/84; PULSE 70; RESP 18; TEMP 36.7
[2021-08-19 04:55] LABS: Hematocrit 35.9 % (37.0-47.0); Hemoglobin 11.6 g/dL (12.0-15.0)
--- NOTE | 2021-08-19 07:49 | PM.OBPNVD ---
OB - PN: Subj Subjective Date/time seen: 08/19/21 07:49 Patient comments: no complaints baby status: doing well OB - PN: Obj Data Labs CBC & Chem 7: 08/19/21 04:23 Labs: Laboratory Results - last 24 hr 08/18/21 08/18/21 08/18/21 11:44 11:45 14:46 WBC 6.9 RBC 4.56 Hgb 12.9 Hct 38.9 MCV 85.3 MCH 28.3 MCHC 33.2 RDW 15.0 H Plt Count 308 MPV 10.6 H Immature Gran % (Auto) 0.3 Neut % (Auto) 69.6 Lymph % (Auto) 24.2 [place] % (Auto) 5.5 Eos % (Auto) 0.3 Baso % (Auto) 0.1 L Lymph # (Auto) 1.68 [place] # (Auto) 0.4 Eos # (Auto) 0.0 Baso # (Auto) 0.0 Abs Immat Gran (auto) 0.02 Absolute Neuts (auto) 4.8 Absolute Nucleated RBC 0.0 Nucleated RBC % 0.0 Urine Opiates Screen Negative Urine Methadone Screen Negative Ur Barbiturates Screen Negative Ur Phencyclidine Scrn Negative Ur Amphetamine Screen Negative U Benzodiazepines Scrn Negative Urine Cocaine Screen Negative U Cannabinoids Screen Positive A Blood Type B Positive Antibody Screen Negative 08/19/21 04:23 WBC RBC Hgb 11.6 L Hct 35.9 L MCV MCH MCHC RDW Plt Count MPV Immature Gran % (Auto) Neut % (Auto) Lymph % (Auto) [place] % (Auto) Eos % (Auto) Baso % (Auto) Lymph # (Auto) [place] # (Auto) Eos # (Auto) Baso # (Auto) Abs Immat Gran (auto) Absolute Neuts (auto) Absolute Nucleated RBC Nucleated RBC % Urine Opiates Screen Urine Methadone Screen Ur Barbiturates Screen Ur Phencyclidine Scrn Ur Amphetamine Screen U Benzodiazepines Scrn Urine Cocaine Screen U Cannabinoids Screen Blood Type Antibody Screen OB - PN A/P Plan day: 1 Plan: routine care Time Spent With Patient Time: Total time spent is greater than 50% in coordination of care (as documented) at patient's floor/unit and/or counseling patient: Time with patient: less than 15 minutes Review of Systems Review of Systems: All systems reviewed & are unremarkable except as noted in HPI and below Exam Narrative: Fundus firm and vaginal flow controlled. No lower ext redness, warmth, or edema. Negative homans. Const: General: comfortable Chest: Breast/axilla inspection: normal inspection of the breasts Resp: Effort & Inspection: normal respiratory effort Cardio: Rate: regular rate GI: GI Palp: Yes Soft to palpation Psych: Appearance: grossly normal Affect: normal affect Attitude: cooperative Thought content: Yes Normal thought content present Judgement: Good judgement present (Psych)
[2021-08-19 08:36] VITALS: BP 107/73; PULSE 80; RESP 20; TEMP 36.6; O2SAT 99
[2021-08-19] MEDS: DOCUSATE SODIUM 100 MG CAPSULE PO ×2 (08:36→16:10)
[2021-08-19] MEDS: IBUPROFEN 600 MG TABLET PO ×3 (08:36→23:49)
--- NOTE | 2021-08-19 11:38 | PCCCNOTE ---
Addendum entered by ANA Del Real 08/19/21 14:16: Recvd email from DCFS that states: The information you provided did not meet one of the criteria for an investigation (eligible victim, eligible perpetrator, eligible event, or jurisdiction). The information as been documented and will be kept on file. Should you learn of further information or have additional concerns, please feel free to contact us. Original Note: Recvd notification that pt. was THC+ on her UDS. Baby's UDS was also +THC. Baby's meconium is pending at this time. Pt. reports using marijuana during to help with her appetite and sleep. Pt. reports this is her second baby; pt. has a four year old son at home. Pt. reports she and will return home with four year old and FOB Xi at discharge. Pt. reports having a large support system including her mom, Xi's parents, grandparents, and aunts/uncles. Pt. reports having all necessary baby supplies and is already established with [employer] [place] [employer]. Pt. reports she is in the process of setting up with [place]. Pt. denies prior involvement with DCFS. resources provided to pt. DCFS report done online #[id number]. TABATHA de [place] ro[place].
[2021-08-19 12:20] VITALS: BP 133/89; PULSE 62; RESP 18; TEMP 36.5; O2SAT 100
[2021-08-19 14:39] LABS: Rapid Plasma Reagin Non-Reactive (NonReactive)
--- NOTE | 2021-08-19 15:11 | WPDANLDPN2 ---
Anes-Prog Note L&D Date/Time: 08/19/21 15:11 Comfortable throughout: labor and delivery Neuraxial method: epidural Epidural/Spinal procedure site: clean & non-tender Neuro status: Neuro function grossly intact. Cardiovascular status: normal Respiratory status: normal Airway patency: baseline Mental status: baseline Post-Op hydration status: normal Vital Signs: Last Vital Signs Temp 36.5 C 08/19/21 12:20 Pulse 62 08/19/21 12:20 Resp 18 08/19/21 12:20 BP 133/89 08/19/21 12:20 Pulse Ox 100 08/19/21 12:20 Pain score (VAS): 0 I/O: Intake & Output 08/18/21 08/19/21 08/19/21 23:59 07:59 15:59 Intake Total 1000 Balance 1000 Post-procedural complaints: none Patient feedback: Patient satisfied with anesthetic care.
[2021-08-19 16:10] VITALS: BP 121/73; PULSE 72; RESP 16; TEMP 36.5; O2SAT 100
[2021-08-19 19:00] VITALS: BP 122/85; PULSE 71; RESP 18; TEMP 36.8
[2021-08-19] MEDS: ACETAMINOPHEN 325 MG TABLET 650 MG PO (19:54)
[2021-08-20] MEDS: ACETAMINOPHEN 325 MG TABLET 650 MG PO (03:48)
--- NOTE | 2021-08-20 07:32 | PM.OBPNVD ---
OB - PN: Subj Subjective Date/time seen: 08/20/21 07:32 Patient comments: no complaints baby status: doing well and bottle feeding well OB - PN: Obj Data Labs CBC & Chem 7: 08/19/21 04:23 Labs: Laboratory Results - last 24 hr 08/18/21 11:44 RPR Non-reactive OB - PN A/P Plan day: 2 Plan: routine care and discharge home Time Spent With Patient Time: Total time spent is greater than 50% in coordination of care (as documented) at patient's floor/unit and/or counseling patient: Time with patient: less than 15 minutes Exam Narrative: NAD abdomen soft, nontender, fundus firm below the umbilicus Extremities nontender, 1+ edema
--- NOTE | 2021-08-20 07:35 | P.DS_ITS ---
DS: Admitting Diagnosis Discharge Date 08/20/21 Admitting Diagnosis labor at term DS: Discharge Diagnosis Discharge Diagnosis (1) , delivered: Code(s): O80 - Encounter for full-term uncomplicated delivery Status: Acute DS: Summary Hospital Course Hospital Course: Clari was admitted in labor and proceeded to have an uncomplicated vaginal delivery. Her course was uncomplicated. Status at Discharge Functional status at discharge: independent ambulation Time Spent with Patient Time attestation: Total time spent providing and/or coordinating discharge services: Time spent: Less than 30 minutes Exam Narrative: NAD abdomen soft, appropriately tender Ext non tender, 1+ edema DS: Data Data Completed and Pending Pending studies at discharge: Pending at discharge 08/18/21 16:06 Surgical [PTH] Routine Labs on day of discharge: Labs from last 24 hours 08/18/21 11:44 RPR Non-reactive Discharge Plan Discharge Attending physician on discharge: Jhoana Hood Discharging Clinician: Jhoana Hood Anticipated Discharge Date/Time: 08/20/21 10:00 Patient Disposition: Home, Self-Care Activity: pelvic rest Diet: regular Patient Instructions: Antibiotic Form Stand Alone Forms: General Discharge Information Follow-up/Referrals: Jhoana Hood MD [Physician] - 1 Week Date of admission: 08/18/21 11:32 Primary Care Provider: PHYSICIAN,JITTERBUG OPERATOR Admitting Provider: Jhoana Hood Attending physician on admission: Jhoana Hood Condition: Stable
[2021-08-20 08:00] VITALS: BP 129/88; PULSE 68; RESP 16; TEMP 37.2; O2SAT 100
[2021-08-20] MEDS: DOCUSATE SODIUM 100 MG CAPSULE PO (08:48)
[2021-08-20] MEDS: IBUPROFEN 600 MG TABLET PO (08:48)
--- NOTE | 2021-08-20 16:24 | PC.NURSE ---
Patient viewed the discharge video Mother & Baby Care, The First Two Weeks . Patient was given the opportunity and encouraged to ask questions. Patient verbalized understanding of information shared and has been given the mother/baby guide for home reference.
[2021-08-21 09:49] VITALS: BP 128/85; PULSE 69; RESP 16; TEMP 36.8; O2SAT 100
== END 2021-08-20 16:05 | disposition home or self-care (01) | DRG 560 ==
LOC: ANHLDR 11:39 → ANHOB2 19:29
PROVIDERS: Advanced Practice Midwife; Admitting Provider Obstetrics & Gynecology; Visit Provider Obstetrics & Gynecology
DX: O99.824 Streptococcus B carrier state complicating childbirth (principal); Z37.0 Single live birth; Z3A.37 37 weeks gestation of pregnancy
CPT/HCPCS: 36415; 80307; 85014; 85018; 85025; 86592; 86850; 86900; 86901; 88307; A9270; J0290; J2590; J2795; J7120

== ENCOUNTER 2022-08-02 14:29 | Emergency (ER) | payer OTHER, SELFPAY ==
[2022-08-02 14:50] VITALS: BP 122/87; PULSE 91; RESP 18; TEMP 36.6; O2SAT 100
--- NOTE | 2022-08-02 15:19 | ED.DENTAL ---
HPI - Dental/Oral General Chief complaint: Dental/Oral Stated complaint: Dental Pain Time Seen by Provider: 08/02/22 15:19 Source: patient Mode of arrival: ambulatory Limitations: no limitations History of Present Illness HPI Narrative: 22-year-old female presents with complaint of no pain to upper and lower teeth. She currently does not have a dentist. Has been told in the past that she needs some teeth pulled in some fillings. Was told that she needs to see an oral surgeon. States she recently started a new job has new dental insurance starting soon. Has currently had pain for 2-3 days. Afebrile. All systems reviewed and negative except as noted above. Related Data Allergies Allergy/AdvReac Type Severity Reaction Status Date / Time No Known Allergies Allergy Verified 08/02/22 14:42 Review of Systems Review of Systems: CONSTITUTIONAL: Denies fever, chills, or sweats. EYES: Denies visual changes, redness, or discharge. ENT: Denies rhinorrhea, congestion, sore throat, or otalgia. Reports upper and lower dental pain to right side. CARDIOVASCULAR: Denies chest pain, palpitations, or edema. RESPIRATORY: Denies cough or dyspnea. GASTROINTESTINAL: Denies abdominal pain, nausea, vomiting, or diarrhea. GENITOURINARY: Denies dysuria or hematuria. SKIN: Denies rash or itching. MUSCULOSKELETAL: Denies back pain, joint pain, or myalgia. NEUROLOGIC: Denies headache, numbness, or weakness. PSYCHIATRIC: Denies anxiety or depression. All other systems reviewed are negative, except as documented in HPI. PMFSH Past Medical History Medical History No active medical problems Family History Family History Other No active medical problems Social History Social History Smoking status: Never smoker Alcohol intake: current Substance use: never Spiritual care concerns: No Comments At time of signature, agree with nursing past medical, surgical, social and family history. There is no relevant family history pertinent to the presenting complaint. Exam Narrative: GENERAL: This is a well-nourished, well-developed patient, in no apparent distress. HEAD: normocephalic, atraumatic. EYES: PERRL. Sclera clear/white. Vision is grossly intact. EARS: External ears normal NOSE: External nose normal MOUTH: multiple dental caries, tooth decay, some missing teeth. no significant redness or swelling. no fluctuance. NECK: Neck supple, non-tender without lymphadenopathy, masses or thyromegaly. CARDIOVASCULAR: Regular rate and rhythm without murmurs, gallops, or rubs. RESPIRATORY: Clear to auscultation. Breath sounds equal bilaterally. No wheezes, rales, or rhonchi. SKIN: warm, Dry, intact with no suspicious lesions or rash, good texture and turgor. NEURO: awake, alert, and oriented to person, place and time. There were no obvious focal neurologic abnormalities. EXTREMITIES: No joint tenderness, effusion, or edema noted. Course Course Level of Care: Express Care Visit Vital Signs Vital signs: Vital Signs Temperature 36.6 C 08/02/22 14:50 Pulse Rate 91 08/02/22 14:50 Respiratory Rate 18 08/02/22 14:50 Blood Pressure 122/87 08/02/22 14:50 Pulse Oximetry 100 08/02/22 14:50 Oxygen Delivery Room Air 08/02/22 14:50 Temperature 36.6 C 08/02/22 14:50 Pulse Rate 91 08/02/22 14:50 Respiratory Rate 18 08/02/22 14:50 Blood Pressure 122/87 08/02/22 14:50 Pulse Oximetry 100 08/02/22 14:50 Oxygen Delivery Room Air 08/02/22 14:50 Reviewed MDM - Dental/Oral MDM Narrative Medical decision making narrative: Patient is aware of diagnosis, understands and agrees to treatment plan. Anticipatory guidance given. Patient agrees to follow-up as directed and is aware of reasons to seek care at the emergency department. Portions of th
== END 2022-08-02 15:28 | disposition home or self-care (01) ==
PROVIDERS: Emergency Provider Nurse Practitioner Family
DX: K08.89 Other specified disorders of teeth and supporting structures (principal)
CPT/HCPCS: 99213; G0463

== ENCOUNTER 2022-09-29 13:54 | Emergency (ER) | payer OTHER, SELFPAY ==
[2022-09-29 14:04] VITALS: BP 128/82; PULSE 77; RESP 16; TEMP 36.9; O2SAT 99
[2022-09-29 14:06] VITALS: BP 128/82; PULSE 77; RESP 16; TEMP 36.9; O2SAT 99
[2022-09-29 14:17] LABS: Glucose Point of Care 92 mg/dl (65-105)
--- NOTE | 2022-09-29 14:21 | ECG_ITS ---
Measurements Intervals [place] Rate: 65 P: 31 DE: 200 QRS: 29 QRSD: 88 T: 10 QT: 384 QTc: 399 Interpretive Statements SINUS RHYTHM WITH SINUS ARRHYTHMIA DELAYED PRECORDIAL R/S TRANSITION BASELINE ARTIFACT- II, III BORDERLINE ECG NO PREVIOUS ECG AVAILABLE FOR COMPARISON Electronically Signed On 09-30-2022 7:56:42 SENIOR UI WEB DEVELOPER by Andrae Newberry D.O.
[2022-09-29 14:37] VITALS: BP 132/78; PULSE 70
[2022-09-29 14:39] VITALS: BP 128/76; PULSE 62
[2022-09-29 14:41] VITALS: BP 129/86; PULSE 66
--- NOTE | 2022-09-29 14:44 | ED.DIZZY ---
HPI - Dizziness General Chief Complaint: Upper Respiratory Infection Stated Complaint: Weakness/Headache/Vomiting Time Seen by Provider: 09/29/22 14:10 Source: patient Mode of arrival: ambulatory Limitations: no limitations History of Present Illness HPI Narrative: Clari is a 22-year-old female patient presenting to the clinic today with complaints of weakness, dizziness, headache, and vomiting x1 today. She reports that her symptoms have improved however she does feel little bit weak still. Has history of hyperglycemia in her family. She reports she ate breakfast and lunch today. She has some fruits for breakfast and cabbage and soup for lunch. She denies any nausea at this time. Last menstrual period was last month. Related Data Allergies Allergy/AdvReac Type Severity Reaction Status Date / Time No Known Allergies Allergy Verified 09/29/22 14:05 [facility] Past Medical History Medical History No active medical problems Family History Family History Other No active medical problems Social History Social History Smoking status: Never smoker Alcohol intake: current Substance use: never Spiritual care concerns: No Comments At the time of my signature, I reviewed and agree with the nursing past medical, surgical, social, and family history. There is no relevant family history pertinent to the patient complaint. Course Course Emergency Course: Portions of this record may have been created with voice recognition software. Level of Care: Express Care Visit Vital Signs Vital signs: Vital Signs Temperature 36.9 C 09/29/22 14:04 Pulse Rate 77 09/29/22 14:04 Respiratory Rate 16 09/29/22 14:04 Blood Pressure 128/82 09/29/22 14:04 Pulse Oximetry 99 09/29/22 14:04 Oxygen Delivery Room Air 09/29/22 14:04 Temperature 36.9 C 09/29/22 14:06 Pulse Rate 66 09/29/22 14:41 Respiratory Rate 16 09/29/22 14:06 Blood Pressure 129/86 09/29/22 14:41 Pulse Oximetry 99 09/29/22 14:06 Oxygen Delivery Room Air 09/29/22 14:06 Vital signs reviewed MDM - Dizziness MDM Narrative Medical decision making narrative: At the time of visit patient is resting comfortably on the exam table. EKG was performed shows sinus rhythm with sinus arrhythmia- heart rate 65 beats per minute without ectopy. Blood sugar was 92 in the clinic today. Orthostatics were completed and were within normal limits. Urinalysis was obtained Differential Diagnosis Differential diagnosis: Likely benign paroxysmal positional vertigo, orthostatic hypotension and other ( near syncope, vertigo) Lab Data Labs: Lab Results 09/29/22 Range/Units 14:13 POC Capillary Glucose 92 (65-105) mg/dl UCG Bedside Result Negative Reference Range: Negative Urine Glucose Negative Reference Range: Negative Urine Bilirubin Negative Reference Range: Negative Urine Ketone Negative Reference Range: Negative Urine Specific [place] 1.025 Reference Range:1.001-1.035 Urine Blood Negative Reference Range: Negative * * Urine pH 7.0 Reference Range: 5.0-9.0 Urine Protein Trace Reference Range: Negative Urine Urobilinogen 0.2 Reference Range: 0.2
== END 2022-09-29 15:09 | disposition home or self-care (01) ==
PROVIDERS: Emergency Provider Nurse Practitioner Family
DX: R55 Syncope and collapse (principal); R11.2 Nausea with vomiting, unspecified
CPT/HCPCS: 81003; 81025; 82948; 93005; 99213; G0463

== ENCOUNTER 2023-02-11 16:56 | Outpatient (RCR) | payer OTHER, SELFPAY | END 2023-05-12 23:59 | disposition home or self-care (01) | LOC: ANHLAB 16:56 | PROVIDERS: Visit Provider Advanced Practice Midwife | DX: N91.2 Amenorrhea, unspecified (principal) | CPT/HCPCS: 36415; 84702 ==

== ENCOUNTER 2023-02-17 12:47 | Emergency (ER) | payer OTHER, SELFPAY ==
[2023-02-17 13:05] VITALS: BP 130/85; PULSE 90; RESP 16; TEMP 36.5; O2SAT 100
--- NOTE | 2023-02-17 14:36 | PC.NURSE ---
pt unable to provide urine sample at this time. pt declining straight cath.
[2023-02-17 14:38] LABS: Basophils Percent Auto 0.2 % (0.2-1.2); Eosinophils Percent Auto 0.6 % (0-4.4); Hemoglobin 14.7 g/dL (12.0-15.0); Immature Granulocyte Absolute 0.02 K/mm3 (0.00-0.031); Immature Granulocyte Percent A 0.4 % (0-0.5); Lymphocytes Absolute Auto 1.52 K/mm3 (0.9-3.2); Lymphocytes Percent Auto 28.2 % (18.3-44.2); Mean Corpuscular HGB Conc 33.4 g/dl (32-36); Mean Corpuscular Hemoglobin 29.6 pg (26-34); Mean Corpuscular Volume 88.7 fl (80-100); Mean Platelet Volume 10.5 fl (7.4-10.4); Monocytes Absolute Auto 0.4 K/mm3 (0.1-0.6); Monocytes Percent Auto 6.7 % (2.6-8.5); Neutrophils Absolute Auto 3.5 K/mm3 (1.3-6.7); Neutrophils Percent Auto 63.9 % (45.5-73.1); Platelet Count Result 301 k/mm3 (150-375); Red Blood Count 4.96 M/mm3 (4.2-5.4); Red Cell Distribution Width 13.2 % (11.5-14.5); White Blood Count 5.4 K/mm3 (4.5-10.0)
[2023-02-17 14:43] LABS: Alanine Aminotransferase 24 U/L (6-35); Albumin Level 5.2 g/dL (3.5-5.1); Alkaline Phosphatase 67 U/L (38-126); Anion Gap 12 mmol/L (8-16); Aspartate Amino Transferase 28 U/L (14-36); Bilirubin,Total 0.6 mg/dL (0.2-1.3); Blood Urea Nitrogen 12 mg/dL (7-17); Calcium 9.7 mg/dL (8.4-10.2); Carbon Dioxide 26 mmol/L (22-30); Chloride 100 mmol/L (98-107); Estimated CRCL calculation 99 ml/min; Estimated Glomerular Filt Rate > 60; Glucose 90 mg/dL (65-110); Lipase 49 U/L (23-300); Potassium 3.7 mmol/L (3.4-5.0); Sodium 138 mmol/L (137-145)
--- NOTE | 2023-02-17 15:34 | ED.GENADULT ---
HPI - General Adult General Chief complaint: Nausea/Vomiting/Diarrhea Stated complaint: 7 weeks preg, N/V Time Seen by Provider: 02/17/23 14:28 History of Present Illness HPI narrative: 23-year-old female that is 7 weeks presents to the Emergency Department for evaluation of persistent nausea and vomiting. Patient states that she has had outpatient follow-up for this and did have an ultrasound confirming an intrauterine . Patient does follow-up with Dr. Hood. Patient reports she has had increased nausea and vomiting but denies any abdominal pain denies any constipation or diarrhea. Related Data Allergies Allergy/AdvReac Type Severity Reaction Status Date / Time No Known Allergies Allergy Verified 02/17/23 14:32 Review of Systems Review of Systems: All systems reviewed & are unremarkable except as noted in HPI and below PMFSH Past Medical History Medical History No active medical problems Family History Family History Other No active medical problems Social History Social History Smoking status: Never smoker Alcohol intake: current Substance use: never Spiritual care concerns: No Exam Narrative: APPEARANCE: Well appearing, no pain, no distress, well-nourished. HEAD: normocephalic, atraumatic. EYES: PERRLA/EOMI, conjunctivae clear. NOSE: Normal no drainage NECK: Supple. No adenopathy, no masses. RESPIRATORY: Airway patent, respirations nonlabored. Clear to auscultation bilaterally, no rales, rhonchi, wheezing. CARDIOVASCULAR: Regular rate and rhythm without murmurs rubs or gallops. ABDOMINAL: Soft, nontender, nondistended, normal bowel sounds MUSCULOSKELETAL: Moves all extremities. Strength/ROM intact, No edema, No calf tenderness. NEURO: Alert. Cranial nerves II through XII intact. SKIN: Warm, dry. Normal Color Course Course Emergency Course: 23-year-old female presented to the ED for evaluation of nausea vomiting. Patient is afebrile with no leukocytosis. Patient's CMP is within normal limits. Patient did have some ketones in her urine and did have some evidence of a urinary tract infection. Patient was treated with Macrobid. Patient did feel improved with rehydration and treatment with antiemetics. 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 Vital Signs Vital signs: Vital Signs Temperature 97.7 F 02/17/23 13:05 Pulse Rate 90 02/17/23 13:05 Respiratory Rate 16 02/17/23 13:05 Blood Pressure 130/85 02/17/23 13:05 Pulse Oximetry 100 02/17/23 13:05 Oxygen Delivery Room Air 02/17/23 13:05 Temperature 97.7 F 02/17/23 13:05 Pulse Rate 88 02/17/23 18:04 Respiratory Rate 17 02/17/23 18:04 Blood Pressure 128/82 02/17/23 18:04 Pulse Oximetry 100 02/17/23 18:04 Oxygen Delivery Room Air 02/17/23 13:05 Medical Decision Making Differential Diagnosis Differential Diagnosis: Hyperemesis , UTI, dehydration Vital Signs Vital Signs: Vital Signs Temperature 97.7 F 02/17/23 13:05 Pulse Rate 90 02/17/23 13:05 Respiratory Rate 16 02/17/23 13:05 Blood Pressure 130/85 02/17/23 13:05 Pulse Oximetry 100 02/17/23 13:05 Oxygen Delivery Room Air 02/17/23 13:05 Temperature 97.7 F 02/17/23 13:05 Pulse Rate 88 02/17/23 18:04 Respiratory Rate 17 02/17/23 18:04 Blood Pressure 128/82 02/17/23 18:04 Pulse Oximetry 100 02/17/23 18:04 Oxygen Delivery Room Air 02/17/23 13:05 Lab Data Lab results reviewed: Yes I reviewed the patient's lab results. 02/17/23 14:27 02/17/23 14:28 Labs: Lab Results 02/17/23 02/17/23 02/17/23 Range/Units 14:27 14:28 15:49 WBC 5.4 (4.5-10.0) K/mm3 RBC 4.96 (4.2-5.4) M/mm3 Hgb 14.7 D (12.0-15.0) g/dL Hct 44.0 (37.0-47.
[2023-02-17] MEDS: SODIUM CHLORIDE 0.9% IV 1,000 ML 999 ML IV CONT (15:47)
[2023-02-17] MEDS: METOCLOPRAMIDE HCL INJ 10 MG/2 ML VIAL IV PUSH (15:47)
[2023-02-17 16:18] LABS: Appearance Urine Cloudy (Clear); Bacteria Urine 1+ /hpf; Bilirubin Urine 1+ (Negative); Blood Urine Negative (Negative); Budding Yeast Urine Present /hpf; Color Urine Dark Yellow (Yellow); Glucose Urine UA Negative (Negative); Ketones Urine 2+ mg/dL (Negative); Leukocyte Esterase Ur 1+ LEU/UL (Negative); Nitrate Urine Negative (Negative); Non Pathogenic Casts 0-2; Protein Urine 2+ mg/dL (Negative); Squamous Epithelial Cell Urine Moderate /hpf (Few); pH Urine 6.5 (5.0-9.0)
[2023-02-17 16:24] LABS: Specific Grav Ur 1.037 (1.001-1.035)
[2023-02-17 16:25] LABS: Add Urine Microscopic? YES
[2023-02-17] MEDS: NITROFURANTOIN MONOHYD MACROCR 100 MG CAP PO (16:34)
[2023-02-17 18:04] VITALS: BP 128/82; PULSE 88; RESP 17; O2SAT 100
== END 2023-02-17 18:06 | disposition home or self-care (01) ==
PROVIDERS: Emergency Provider Emergency Medicine; PCP Obstetrics & Gynecology
DX: O21.0 Mild hyperemesis gravidarum (principal); O23.41 Unspecified infection of urinary tract in pregnancy, first trimester; N39.0 Urinary tract infection, site not specified; Z3A.01 Less than 8 weeks gestation of pregnancy
CPT/HCPCS: 36415; 80053; 81001; 83690; 85025; 87086; 87088; 96361; 96374; 99284; A9270; J2765; J7030

== ENCOUNTER 2023-09-29 10:48 | Inpatient (IN) | payer OTHER, SELFPAY ==
[2023-09-29] VITALS (97 sets, daily range): BP systolic 105–219; BP diastolic 67–187; PULSE 58–229; RESP 18; TEMP 36.1–36.9; O2SAT 97–100; BMI 32.3
[2023-09-29] MEDS: AMPICILLIN 2 GM/NS 100 ML 2 GM/100 ML BAG IVPB (11:25)
[2023-09-29] MEDS: LACTATED RINGERS 1,000 ML 125 ML IV CONT (11:26)
[2023-09-29 11:27] LABS: Basophils Percent Auto 0.2 % (0.2-1.2); Eosinophils Absolute Auto 0.1 K/mm3 (0-0.3); Eosinophils Percent Auto 0.8 % (0-4.4); Hematocrit 37.7 % (37.0-47.0); Hemoglobin 11.8 g/dL (12.0-15.0); Immature Granulocyte Absolute 0.04 K/mm3 (0.00-0.031); Immature Granulocyte Percent A 0.6 % (0-0.5); Lymphocytes Absolute Auto 1.78 K/mm3 (0.9-3.2); Lymphocytes Percent Auto 28.7 % (18.3-44.2); Mean Corpuscular HGB Conc 31.3 g/dl (32-36); Mean Corpuscular Volume 92.6 fl (80-100); Mean Platelet Volume 11.3 fl (7.4-10.4); Monocytes Absolute Auto 0.4 K/mm3 (0.1-0.6); Monocytes Percent Auto 6.6 % (2.6-8.5); Neutrophils Absolute Auto 3.9 K/mm3 (1.3-6.7); Neutrophils Percent Auto 63.1 % (45.5-73.1); Platelet Count Result 263 k/mm3 (150-375); Red Blood Count 4.07 M/mm3 (4.2-5.4); Red Cell Distribution Width 15.8 % (11.5-14.5); White Blood Count 6.2 K/mm3 (4.5-10.0)
--- NOTE | 2023-09-29 11:30 | P.PNAN_ITS ---
Anes - Eval Pre Procedure Procedure: Labor Epidural Date/Time: 09/29/23 11:30 Surgeon: Delio Preop Diagnosis: Labor Pain Pre Op Diagnosis: Labor Patient Data Age: 23 Gender: F Height: Weight: Allergies Allergy/AdvReac Type Severity Reaction Status Date / Time No Known Allergies Allergy Verified 09/25/23 13:30 Home Medications Medication Instructions Recorded Confirmed Type No Home Medications 09/25/23 09/25/23 History Laboratory Tests 09/29/23 11:22 WBC 6.2 K/mm3 (4.5-10.0) RBC 4.07 L M/mm3 (4.2-5.4) Hgb 11.8 L g/dL (12.0-15.0) Hct 37.7 % (37.0-47.0) MCV 92.6 fl (80-100) MCH 29.0 pg (26-34) MCHC 31.3 L g/dl (32-36) RDW 15.8 H % (11.5-14.5) Plt Count 263 k/mm3 (150-375) MPV 11.3 H fl (7.4-10.4) Immature Gran % (Auto) 0.6 H % (0-0.5) Neut % (Auto) 63.1 % (45.5-73.1) Lymph % (Auto) 28.7 % (18.3-44.2) [place] % (Auto) 6.6 % (2.6-8.5) Eos % (Auto) 0.8 % (0-4.4) Baso % (Auto) 0.2 % (0.2-1.2) Lymph # (Auto) 1.78 K/mm3 (0.9-3.2) [place] # (Auto) 0.4 K/mm3 (0.1-0.6) Eos # (Auto) 0.1 K/mm3 (0-0.3) Baso # (Auto) 0.0 K/mm3 (0.0-0.1) Abs Immat Gran (auto) 0.04 H K/mm3 (0.00-0.031) Absolute Neuts (auto) 3.9 K/mm3 (1.3-6.7) Absolute Nucleated RBC 0.0 K/mm3 (0.0-0.012) Nucleated RBC % 0.0 % (0.0-0.2) RPR Pending : gestational age (SUNITHA 10/07/23, ) Patient hx anesthesia problems: none Family hx anesthesia problems: none Results Review: All pre-operative results and documents have been reviewed as part of the pre- operative evaluation. [facility] Past Medical History Medical History No active medical problems Family History Family History Other No active medical problems Social History Social History Smoking status: Never smoker Alcohol intake: current Substance use: never Spiritual care concerns: No Exam Day of Procedure 09/29/23 11:30 Patient weight: normal Heart: regular rate and rhythm Lungs: normal air movement Airway: Mallampati scale class II Neurological: alert and oriented
--- NOTE | 2023-09-29 11:30 | LDADM ---
This patient, Clari Casas, was admitted to Labor/Delivery/Recovery 103 on 09/29/23 at 10:48. Plans for labor, pain management and were discussed with patient. Patient/family oriented to hospital policies and general routines including ID bracelet, bed and alarms, visiting hours, pain management, procedures, bathroom and other care routines, personal items, smoking policy, room service/diet and guest tray routines, security routines, and visiting hours. Patient/Family are encouraged to report perceived risks to care and to ask questions if they do not understand what they are told or what they should do. See OBIX for further documentation.
[2023-09-29 14:54] LABS: Rapid Plasma Reagin Non-Reactive (NonReactive)
[2023-09-29] MEDS: OXYTOCIN 30 UNITS/NS 500 ML 30 UNITS/500 ML BAG 999 UNITS IV CONT (15:44)
--- NOTE | 2023-09-29 15:51 | PM.IMHP ---
H&P: HPI History of Present Illness Date/Time: 09/29/23 1230 Chief Complaint: labor Narrative: Patient presents in labor. SVE 7cm, previously 4cm in office. Denies LOF or VB. overall uncomplicated. Hx of 2 SVDs. Review of Systems Review of Systems: All systems reviewed & are unremarkable except as noted in HPI and below PMFSH Past Medical History Medical History No active medical problems Family History Family History Other No active medical problems Social History Social History Smoking status: Never smoker Alcohol intake: current Substance use: never Do You Feel Safe in your Home?: No Lack of Transportation: No Lack of Food: Never True Current Housing: I Have Housing Concerned About Future Housing: No Difficulty Paying Gas/Electric Bills: No Difficulty Paying for Meds: No Currently Unemployed: No Education: High School Diploma/GED Difficulty w/ Childcare or Family Care: No Spiritual care concerns: No Meds Home Medications and Allergies Home Medications Medication Instructions Recorded Confirmed Type No Home Medications 09/25/23 09/25/23 History Allergies Allergy/AdvReac Type Severity Reaction Status Date / Time No Known Allergies Allergy Verified 09/25/23 13:30 Vital Signs Vital Signs - 24 hr 09/29/23 11:30 09/29/23 11:35 09/29/23 11:40 Pulse Rate 77 Blood Pressure 131/91 H Pulse Oximetry 100 100 Oxygen Delivery 09/29/23 11:42 09/29/23 11:43 09/29/23 11:45 Pulse Rate 78 78 78 Blood Pressure 140/79 134/80 130/87 Pulse Oximetry 100 Oxygen Delivery 09/29/23 11:46 09/29/23 11:47 09/29/23 11:49 Pulse Rate 80 76 Blood Pressure 137/82 135/83 Pulse Oximetry 100 Oxygen Delivery 09/29/23 11:50 09/29/23 11:51 09/29/23 11:51 Pulse Rate 77 Blood Pressure 123/80 Pulse Oximetry 100 100 100 Oxygen Delivery 09/29/23 11:51 09/29/23 11:51 09/29/23 11:53 Pulse Rate 71 Blood Pressure 131/85 Pulse Oximetry 100 100 Oxygen Delivery 09/29/23 11:54 09/29/23 11:55 09/29/23 11:57 Pulse Rate 69 80 Blood Pressure 127/77 132/74 Pulse Oximetry 100 100 100 Oxygen Delivery 09/29/23 11:59 09/29/23 12:01 09/29/23 12:02 Pulse Rate 73 74 Blood Pressure 136/79 129/81 Pulse Oximetry 100 Oxygen Delivery 09/29/23 12:03 09/29/23 12:05 09/29/23 12:07 Pulse Rate 74 76 79 Blood Pressure 129/96 H 123/84 133/101 H Pulse Oximetry 100 Oxygen Delivery 09/29/23 12:09 09/29/23 12:11 09/29/23 12:12 Pulse Rate 74 70 Blood Pressure 122/77 126/67 Pulse Oximetry 100 Oxygen Delivery 09/29/23 12:14 09/29/23 12:16 09/29/23 12:17 Pulse Rate 74 67 68 Blood Pressure 146/71 H 123/69 124/69 Pulse Oximetry 100 Oxygen Delivery 09/29/23 12:19 09/29/23 12:22 09/29/23 12:27 Pulse Rate 130 H Blood Pressure 133/71 Pulse Oximetry 100 100 Oxygen Delivery 09/29/23 12:31 09/29/23 12:32 09/29/23 12:37 Pulse Rate 93 Blood Pressure 116/85 Pulse Oximetry 100 100 Oxygen Delivery 09/29/23 12:42 09/29/23 12:45 09/29/23 12:47 Pulse Rate 70 Blood Pressure 130/81 Pulse Oximetry 100 100 Oxygen Delivery 09/29/23 12:52 09/29/23 12:57 09/29/23 13:01 Pulse Rate 62 Blood Pressure 134/84 Pulse Oximetry 100 100 Oxygen Delivery 09/29/23 13:02 09/29/23 13:07 09/29/23 13:12 Pulse Rate Blood Pressure Pulse Oximetry 100 100 100 Oxygen Delivery 09/29/23 13:16 09/29/23 13:17 09/29/23 13:22 Pulse Rate 68 Blood Pressure 122/84 Pulse Oximetry 100 100 Oxygen Delivery 09/29/23 13:27 09/29/23 13:31 09/29/23 13:32 Pulse Rate 87 Blood Pressure 107/81 Pulse Oximetry 100 100 Oxygen Delivery 09/29/23 13:37 09/29/23 13:42 09/29/23 13:45 Pulse Rate
--- NOTE | 2023-09-29 15:56 | PM.OBPRVD ---
OB - Vaginal Delivery Note Procedure Delivery date: 09/29/23 Induction method: None Delivery augmentation: Rupture of Membranes Delivery monitor: External FHT and External Uterine Route of delivery: Episiotomy description: None Laceration Description: None Specimen: No Quantitative Blood Loss (ml): 50 Anesthesia type: Epidural Disposition: Floor Complications: No immediate complications Baby Weeks of gestation at delivery: 38 gender: Male presentation: vertex position: Left Occiput Anterior Placenta delivery description: Expressed Cord Vessel Description: 3 Vessels
[2023-09-29] MEDS: OXYTOCIN 30 UNITS/NS 500 ML 30 UNITS/500 ML BAG 125 UNITS IV CONT (16:15)
--- NOTE | 2023-09-29 18:36 | OBPPTRN ---
Patient transferred to post room #283 via w/c. Support person present. Oriented to unit, room, information board, rooming in, admission packet and security measures. Patient verbalizes understanding.
[2023-09-29] MEDS: IBUPROFEN 600 MG TABLET PO (19:10)
[2023-09-29] MEDS: WITCH HAZEL 40 PADS 1 PAD TOPICAL (20:01)
[2023-09-29] MEDS: BENZOCAINE 20% AER SPR (*SP) 56 GM CAN 1 SPRAY TOPICAL (20:01)
[2023-09-30 04:15] VITALS: BP 128/81; PULSE 67; RESP 18; TEMP 36.5
[2023-09-30] MEDS: IBUPROFEN 600 MG TABLET PO ×3 (04:15→21:30)
[2023-09-30 07:01] LABS: Hematocrit 37.1 % (37.0-47.0); Hemoglobin 11.5 g/dL (12.0-15.0)
--- NOTE | 2023-09-30 07:13 | PM.OBPNVD ---
OB - PN: Subj Subjective Date/time seen: 09/30/23 07:13 Interval history: PPD#1, doing well Bleeding minimal No fevers or chills Desires discharge home today OB - PN: Obj Data Labs 09/29/23 11:22 Labs: Laboratory Results - last 24 hr 09/29/23 11:22 WBC 6.2 RBC 4.07 L Hgb 11.8 L Hct 37.7 MCV 92.6 MCH 29.0 MCHC 31.3 L RDW 15.8 H Plt Count 263 MPV 11.3 H Immature Gran % (Auto) 0.6 H Neut % (Auto) 63.1 Lymph % (Auto) 28.7 [place] % (Auto) 6.6 Eos % (Auto) 0.8 Baso % (Auto) 0.2 Lymph # (Auto) 1.78 [place] # (Auto) 0.4 Eos # (Auto) 0.1 Baso # (Auto) 0.0 Abs Immat Gran (auto) 0.04 H Absolute Neuts (auto) 3.9 Absolute Nucleated RBC 0.0 Nucleated RBC % 0.0 RPR Non-reactive Blood Type B Positive Antibody Screen Negative OB - PN A/P Plan day: 1 Plan: routine care and discharge home Comments: follow up in 4 weeks Time Spent With Patient Time: Total time spent is greater than 50% in coordination of care (as documented) at patient's floor/unit and/or counseling patient: Review of Systems Review of Systems: All systems reviewed & are unremarkable except as noted in HPI and below Exam Const: General: comfortable and no acute distress Resp: Effort & Inspection: normal respiratory effort GI: GI Palp: Yes Soft to palpation
--- NOTE | 2023-09-30 07:15 | PM.OBDSVD ---
DS: Admitting Diagnosis Discharge Date 09/30/22 Admitting Diagnosis labor DS: Discharge Diagnosis Discharge Diagnosis (1) (spontaneous vaginal delivery): Code(s): O80 - Encounter for full-term uncomplicated delivery Status: Acute OB - DS: Summary OB Procedures : None OB Procedures Intrapartum: Spontaneous Vag Delivery OB Procedures: : None Peripartum Data Laceration Description: None Episiotomy description: None Time Spent with Patient Time attestation: Total time spent providing and/or coordinating discharge services: DS: Data Data Completed and Pending Labs on day of discharge: Labs from last 24 hours 09/30/23 09/29/23 06:52 11:22 WBC 6.2 RBC 4.07 L Hgb 11.5 L 11.8 L Hct 37.1 37.7 MCV 92.6 MCH 29.0 MCHC 31.3 L RDW 15.8 H Plt Count 263 MPV 11.3 H Immature Gran % (Auto) 0.6 H Neut % (Auto) 63.1 Lymph % (Auto) 28.7 [place] % (Auto) 6.6 Eos % (Auto) 0.8 Baso % (Auto) 0.2 Lymph # (Auto) 1.78 [place] # (Auto) 0.4 Eos # (Auto) 0.1 Baso # (Auto) 0.0 Abs Immat Gran (auto) 0.04 H Absolute Neuts (auto) 3.9 Absolute Nucleated RBC 0.0 Nucleated RBC % 0.0 RPR Non-reactive Blood Type B Positive Antibody Screen Negative Discharge Plan Discharge Attending physician on discharge: Tomas Kebede Discharging Clinician: Tomas Kebede Patient Disposition: Home, Self-Care Activity: may shower and pelvic rest Diet: as tolerated Patient Instructions: Antibiotic Form Stand Alone Forms: General Discharge Information Follow-up/Referrals: Tomas Kebede MD [Physician] - 4 Weeks Discharge Medications: No Action No Home Medications Date of admission: 09/29/23 10:48 Primary Care Provider: PHYSICIAN,INTERIOR WALL ASSEMBLER Admitting Provider: Tomas Kebede Attending physician on admission: Tomas Kebede Condition: Stable
[2023-09-30 07:55] VITALS: BP 127/82; PULSE 71; RESP 16; TEMP 36.8; O2SAT 100
--- NOTE | 2023-09-30 09:50 | PC.NURSE ---
[id number] Introductions were made, then consulted with patient to assess needs related to . 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 Resources provided for inpatient and outpatient services with the feeding sheet, mom/baby guide and name written on the communication board. Mother voiced understanding of information and will call for the next feeding. Reported to the Primary RN.
--- NOTE | 2023-09-30 10:16 | WPDANLDPN2 ---
Anes-Prog Note L&D Date/Time: 09/30/23 10:16 Comfortable throughout: labor and delivery Neuraxial method: epidural Epidural/Spinal procedure site: clean & non-tender Neuro status: Neuro function grossly intact. Cardiovascular status: normal Respiratory status: normal Airway patency: baseline Mental status: baseline Post-Op hydration status: normal Vital Signs: Last Vital Signs Temp 36.8 C 09/30/23 07:55 Pulse 71 09/30/23 07:55 Resp 16 09/30/23 07:55 BP 127/82 09/30/23 07:55 Pulse Ox 100 09/30/23 07:55 O2 Del Method Room Air 09/29/23 19:00 Pain score (VAS): 1 I/O: Intake & Output 09/29/23 09/30/23 09/30/23 23:59 07:59 15:59 Intake Total 800 Output Total 500 Balance 300 Patient feedback: Patient satisfied with anesthetic care.
--- NOTE | 2023-09-30 12:04 | PC.NURSE ---
[id number] Purposefully rounded to assess needs. Mother has latched independently to the right breast using a dangling football position. Education given to the mother of how to visualize the suckling (with good rocking jaw motion), swallows (dropping of the lower jaw), how to listen for drinking at the breast (the ka sound), gentle breast compression to increase milk swallows to keep infant actively , and demonstrates effectiveness. was able to maintain latch without pain to mother protecting the nipple with optimal positioning, latching, and education was demonstrated on how to support the good latch with pillows. Reviewed comfort measures of healing with a warm, wet washcloth to rinse breast, then leave open to air-dry, good handwashing when or touching the breast/nipples to prevent infection. Mother voiced understanding of skin to skin, stimulating with massage touch, responsive feedings, to encourage if it has been 2 -2.5 hours since the start of the last , to call if infant does not latch, or if there is discomfort with . Mother voiced understanding of information, demonstrated learning, has Jenn at [employer] as a resource, and will call if there is a request for assistance. Reported to the Primary RN.
[2023-09-30 12:05] VITALS: BP 125/72; PULSE 72; RESP 16; TEMP 36.8; O2SAT 100
[2023-09-30 12:20] VITALS: PULSE 72; RESP 16; O2SAT 100
[2023-10-02 10:53] VITALS: BP 122/73; PULSE 76; RESP 18; TEMP 37.2; O2SAT 100
== END 2023-09-30 21:31 | disposition home or self-care (01) | DRG 560 ==
LOC: ANHLDR 11:10 → ANHOB2 19:30
PROVIDERS: Admitting Provider Obstetrics & Gynecology; Visit Provider Obstetrics & Gynecology
DX: O99.824 Streptococcus B carrier state complicating childbirth (principal); Z3A.38 38 weeks gestation of pregnancy; Z37.0 Single live birth
CPT/HCPCS: 36415; 85014; 85018; 85025; 86592; 86850; 86900; 86901; A9270; J0290; J2590; J2795; J7120

== ENCOUNTER 2024-04-03 09:19 | Emergency (ER) | payer OTHER, SELFPAY ==
--- NOTE | 2024-04-03 09:26 | ED.GENADULT ---
HPI - General Adult General Chief complaint: Upper Respiratory Infection Stated complaint: throat issue Time Seen by Provider: 04/03/24 09:26 Source: patient Mode of arrival: ambulatory Limitations: no limitations History of Present Illness HPI narrative: 24-year-old female patient presents to the [facility] with complaints of sore throat, fever, body aches and chills for the past 3 days. Patient states she is currently . Patient states she has tried [id number] Tylenol as well as drinking her own breast milk to help with her symptoms. Denies any coughing, chest pain or shortness of breath. Denies any nausea, vomiting or diarrhea. Related Data Allergies Allergy/AdvReac Type Severity Reaction Status Date / Time No Known Allergies Allergy Verified 04/03/24 09:22 Review of Systems Review of Systems: CONSTITUTIONAL: Positive fever, chills, and sweats. EYES: Denies visual changes, redness, or discharge. ENT: Positive rhinorrhea, congestion, sore throat, denies otalgia. CARDIOVASCULAR: Denies chest pain, palpitations, or edema. RESPIRATORY: Denies cough or dyspnea. GASTROINTESTINAL: Denies abdominal pain, nausea, vomiting, or diarrhea. GENITOURINARY: Denies dysuria or hematuria. SKIN: Denies rash or itching. MUSCULOSKELETAL: Denies back pain, joint pain, or myalgia. NEUROLOGIC: Positive headache, denies numbness, or weakness. PSYCHIATRIC: Denies anxiety or depression. [facility] Past Medical History Medical History No active medical problems Family History Family History Other No active medical problems Social History Social History Smoking status: Never smoker Alcohol intake: current Substance use: never Do You Feel Safe in your Home?: No Lack of Transportation: No Lack of Food: Never True Current Housing: I Have Housing Concerned About Future Housing: No Difficulty Paying Gas/Electric Bills: No Difficulty Paying for Meds: No Currently Unemployed: No Education: High School Diploma/GED Difficulty w/ Childcare or Family Care: No Spiritual care concerns: No Comments At the time of my signature I agree with nursing past medical history, surgical, social, and family history. There is no relevant family history pertinent to the presenting complaint. Exam Narrative: GENERAL: Well-appearing, well-nourished, and in no acute distress. HEAD: Normocephalic, atraumatic. EYES: PERRLA and EOMI. ENT: Nares with erythema edema noted bilaterally no rhinorrhea or epistaxis. Mucous membranes moist. Posterior pharynx with slight erythema noted to the posterior pharynx no tonsillar enlargement, no exudates or lesions present. Bilateral TMs are clear no erythema or foreign bodies canal. NECK: Supple. No lymphadenopathy CHEST: Clear to auscultation. No respiratory distress. HEART: Regular rate and rhythm. No murmur heard. Normal peripheral pulses. ABDOMEN: Soft, nontender, nondistended, normal active bowel sounds. EXTREMITIES: Normal range of motion. No edema. SKIN: Warm, dry, no rash. NEURO: No focal deficits. Alert and oriented x3. Course Course Level of Care: Express Care Visit Vital Signs Vital signs: Vital Signs Temperature 37.7 C H 04/03/24 09:28 Pulse Rate 105 H 04/03/24 09:28 Respiratory Rate 16 04/03/24 09:28 Blood Pressure 123/88 04/03/24 09:28 Pulse Oximetry 99 04/03/24 09:28 Oxygen Delivery Room Air 04/03/24 09:28 Temperature 37.7 C H 04/03/24 09:28 Pulse Rate 105 H 04/03/24 09:28 Respiratory Rate 16 04/03/24 09:28 Blood Pressure 123/88 04/03/24 09:28 Pulse Oximetry 99 04/03/24 09:28 Oxygen Delivery Room Air 04/03/24 09:28 Vital signs reviewed Medical Decision Making MDM Narrative Medical decision making narrative: Discussed with patient that her
[2024-04-03 09:28] VITALS: BP 123/88; PULSE 105; RESP 16; TEMP 37.7; O2SAT 99
[2024-04-03 09:40] LABS: EDSTREPNEGPOS1 Presumptive Negative
[2024-04-03 10:16] LABS: EDMONONEGPOS Negative
== END 2024-04-03 10:22 | disposition home or self-care (01) ==
PROVIDERS: Emergency Provider Nurse Practitioner Family
DX: J06.9 Acute upper respiratory infection, unspecified (principal); Z20.822 Contact with and (suspected) exposure to COVID-19
CPT/HCPCS: 36416; 86308; 87081; 87426; 87880; 99213; G0463